=== PATIENT | female | born 1950 | race Caucasian/White ===

== ENCOUNTER 2016-08-14 08:20 | Outpatient (CLI) | payer MEDICARE, BC, OTHER ==
[2016-08-14 14:32] LABS: BASOPHILS # (AUTO) 0.2 10^3/uL (0.0-0.1); BASOPHILS % (AUTO) 3.1 %; EOSINOPHILS % (AUTO) 19.9 %; LYMPHOCYTES # (AUTO) 1.5 10^3/uL (1.5-3.5); LYMPHOCYTES % (AUTO) 29.8 %; MEAN CORPUSCULAR HEMOGLOBIN 32.3 pg (27.0-31.0); MEAN CORPUSCULAR HGB CONC 33.3 g/dL (32.0-36.0); MEAN PLATELET VOLUME 7.7 fL (7.9-10.8); MONOCYTES # (AUTO) 0.6 10^3/uL (0.0-1.0); NEUTROPHILS # (AUTO) 1.8 10^3/uL (1.5-6.6); NEUTROPHILS % (AUTO) 36.2 %; RED BLOOD COUNT 4.02 10^6/uL (4.20-5.40); RED CELL DISTRIBUTION WIDTH 15.1 % (12.0-15.0); UNCORRECTED WHITE BLOOD COUNT 5.1 x10^3/uL; WHITE BLOOD COUNT 5.1 x10^3/uL (4.8-10.8)
[2016-08-14 14:53] LABS: ALBUMIN/GLOBULIN RATIO 1.3 (1.0-2.2); BILIRUBIN,TOTAL 0.6 mg/dL (0.2-1.0); BUN - BLOOD UREA NITROGEN 14 mg/dL (6-20); CALCIUM 8.9 mg/dL (8.5-10.3); CARBON DIOXIDE - CO2 30 mmol/L (21-32); CHLORIDE 98 mmol/L (101-111); CHOL/HDL RATIO 3.4 (<4.4); CHOLESTEROL 192 mg/dL; CREATININE 0.8 mg/dL (0.4-1.0); GFR - MDRD 72 (>89); GLUCOSE 86 mg/dL (70-100); HDL CHOLESTEROL 56 mg/dL; LDL/HDL RATIO 2.1 (<4.4); POTASSIUM 3.7 mmol/L (3.5-5.0); SODIUM 134 mmol/L (135-145); TOTAL PROTEIN 7.9 g/dL (6.7-8.2); TRIGLYCERIDES 102 mg/dL; VLDL CHOLESTEROL 20 mg/dL
[2016-08-14 15:22] LABS: THYROID STIMULATING HORMONE 14.85 uIU/mL (0.34-5.60)
== END 2016-08-14 08:21 | disposition home or self-care (01) ==
LOC: LAB.R 08:20
PROVIDERS: ATTEND Physician Assistant Medical
DX: Z00.00 Encounter for general adult medical examination without abnormal findings (principal); E03.9 Hypothyroidism, unspecified; Z79.899 Other long term (current) drug therapy
CPT/HCPCS: 80053; 80061; 84439; 84443; 84481; 85025

== ENCOUNTER 2016-08-21 08:55 | Outpatient (CLI) | payer MEDICARE, BC, OTHER ==
[2016-08-21 09:20] LABS: BASOPHILS # (AUTO) 0.1 10^3/uL (0.0-0.1); BASOPHILS % (AUTO) 2.4 %; EOSINOPHILS # (AUTO) 1.1 10^3/uL (0.0-0.7); EOSINOPHILS % (AUTO) 20.1 %; HCT - HEMATOCRIT 37.8 % (37.0-47.0); HGB - HEMOGLOBIN 12.9 g/dL (12.0-16.0); LYMPHOCYTES # (AUTO) 1.7 10^3/uL (1.5-3.5); LYMPHOCYTES % (AUTO) 30.1 %; MEAN CORPUSCULAR HGB CONC 34.2 g/dL (32.0-36.0); MEAN CORPUSCULAR VOLUME 96.5 fL (81.0-99.0); MEAN PLATELET VOLUME 6.8 fL (7.9-10.8); MONOCYTES # (AUTO) 0.6 10^3/uL (0.0-1.0); MONOCYTES % (AUTO) 10.3 %; NEUTROPHILS % (AUTO) 37.1 %; RED BLOOD COUNT 3.91 10^6/uL (4.20-5.40); RED CELL DISTRIBUTION WIDTH 14.7 % (12.0-15.0); UNCORRECTED WHITE BLOOD COUNT 5.5 x10^3/uL; WHITE BLOOD COUNT 5.5 x10^3/uL (4.8-10.8)
== END 2016-08-21 08:56 | disposition home or self-care (01) ==
LOC: LAB 08:55
PROVIDERS: ATTEND Physician Assistant Medical
DX: R07.89 Other chest pain (principal); R07.1 Chest pain on breathing
CPT/HCPCS: 84484; 85025; 85379; 85651; 86140

== ENCOUNTER 2016-08-21 09:26 | Outpatient (CLI) | payer MEDICARE, BC, OTHER ==
--- NOTE | 2016-08-21 09:59 | XRAY Report ---
TWO-VIEW CHEST: 08/21/2016 CLINICAL INDICATION: Chest tightness, pleuritic chest pain for 5 days. FINDINGS: Frontal and lateral views of the chest demonstrate a normal cardiac silhouette. The lungs are clear. No effusion or pneumothorax is present. IMPRESSION: NORMAL CHEST. JOB #: [id number] EXT JOB #:[id number]
== END 2016-08-21 09:27 | disposition home or self-care (01) ==
LOC: DI 09:26
PROVIDERS: ATTEND Physician Assistant Medical
DX: R07.89 Other chest pain (principal)
CPT/HCPCS: 71020

== ENCOUNTER 2016-08-21 10:57 | Outpatient (CLI) | payer MEDICARE, BC, OTHER ==
[2016-08-21] MEDS ORDERED: IOPAMIDOL-300 100 ML VIAL IVP ONE (11:20)
--- NOTE | 2016-08-21 12:18 | CT Report ---
CT PULMONARY ANGIOGRAM: 08/21/2016 CLINICAL INDICATION: Pleuritic chest pain, elevated D-dimer, elevated CRP and ESR. TECHNIQUE: Axial CT images of the chest were obtained with 100 mL of Isovue-300 intravenously. Sagitt al and coronal 3D reconstructions were performed. FINDINGS: The heart and great vessels appear unremarkable. There is no evidence of pulmonary embolus . No pericardial effusion is present. No hilar or mediastinal lymphadenopathy is seen. The lungs are clear. No effusion or pneumothorax is present. The osseous structures demonstrate degenerative change s. Limited evaluation of upper abdominal structures demonstrates normal adrenal glands. IMPRESSION: NORMAL CT PULMONARY ANGIOGRAM. NO EVIDENCE OF PULMONARY EMBOLUS OR OTHER ETIOLOGY FOR PA TIENT'S PLEURITIC CHEST PAIN. In accordance with CT protocol optimization, one or more of the following dose reduction techniques w ere utilized for this exam: automated exposure control, adjustment of mA and/or KV based on patient size, or use of iterative reconstructive technique. JOB #: [id number] EXT JOB #:[id number]
== END 2016-08-21 10:58 | disposition home or self-care (01) ==
LOC: DI 10:57
PROVIDERS: ATTEND Physician Assistant Medical
DX: R07.2 Precordial pain (principal); R74.8 Abnormal levels of other serum enzymes; R07.89 Other chest pain; R09.1 Pleurisy; R07.1 Chest pain on breathing
CPT/HCPCS: 71020; 71275; 84484; 85025; 85379; 85651; 86140; Q9967; 36415

== ENCOUNTER 2016-08-31 08:25 | Outpatient (CLI) | payer MEDICARE, BC, OTHER ==
--- NOTE | 2016-09-02 08:15 | Mammography Report ---
DIGITAL SCREENING MAMMOGRAM: 08/31/2016 CLINICAL INDICATION: A 66-year-old nulliparous patient for screening. COMPARISON: 07/2014, 07/2011, 07/2010, 06/2008 TECHNIQUE: Routine CC and MLO projections were obtained of the breasts. FINDINGS: The breasts again demonstrate heterogeneously dense fibroglandular parenchyma bilaterally. Coarse and punctate, typically benign calcifications are present. No suspicious masses, clustered microcalcifications, or regions of architectural distortion are identified. IMPRESSION: BENIGN FINDINGS. RECOMMENDATION: Routine annual screening unless otherwise clinically indicated. BIRADS CATEGORY 2 - BENIGN FINDINGS. STANDARD QUALIFYING STATEMENTS 1. This examination was reviewed with the aid of Computer-Aided Detection (CAD). 2. A negative or benign imaging report should not delay biopsy if clinically suspicious findings are present. Consider surgical consultation if warranted. More than 5% of cancers are not identified by i maging. 3. Dense breasts may obscure an underlying neoplasm. JOB #: [id number] EXT JOB #:[id number]
== END 2016-08-31 08:26 | disposition home or self-care (01) ==
LOC: DI 08:25
PROVIDERS: ATTEND Physician Assistant Medical
DX: Z12.31 Encounter for screening mammogram for malignant neoplasm of breast (principal)
CPT/HCPCS: 77067

== ENCOUNTER 2016-10-06 08:33 | Outpatient (CLI) | payer MEDICARE, BC, OTHER | END 2016-10-06 08:34 | disposition home or self-care (01) | LOC: LAB.R 08:33 | PROVIDERS: ATTEND Physician Assistant Medical | DX: E03.9 Hypothyroidism, unspecified (principal); Z79.899 Other long term (current) drug therapy | CPT/HCPCS: 84443 ==

== ENCOUNTER 2017-08-26 09:10 | Outpatient (CLI) | payer MEDICARE, BC, OTHER ==
[2017-08-26 14:04] LABS: BASOPHILS # (AUTO) 0.1 10^3/uL (0.0-0.1); BASOPHILS % (AUTO) 1.4 %; EOSINOPHILS # (AUTO) 0.7 10^3/uL (0.0-0.7); EOSINOPHILS % (AUTO) 13.6 %; HGB - HEMOGLOBIN 13.6 g/dL (12.0-16.0); LYMPHOCYTES # (AUTO) 1.7 10^3/uL (1.5-3.5); LYMPHOCYTES % (AUTO) 33.8 %; MEAN CORPUSCULAR HEMOGLOBIN 31.7 pg (27.0-31.0); MEAN CORPUSCULAR HGB CONC 33.1 g/dL (32.0-36.0); MEAN CORPUSCULAR VOLUME 95.6 fL (81.0-99.0); MONOCYTES # (AUTO) 0.6 10^3/uL (0.0-1.0); MONOCYTES % (AUTO) 10.9 %; NEUTROPHILS % (AUTO) 40.3 %; PLT - PLATELET COUNT 357 10^3/uL (130-450); RED BLOOD COUNT 4.29 10^6/uL (4.20-5.40); RED CELL DISTRIBUTION WIDTH 13.5 % (12.0-15.0); WHITE BLOOD COUNT 5.1 x10^3/uL (4.8-10.8)
[2017-08-26 14:36] LABS: ALBUMIN 3.9 g/dL (3.2-5.5); ALKALINE PHOSPHATASE 57 IU/L (42-121); ALT ALANINE AMINOTRANSFERASE 14 IU/L (10-60); AST ASPARTATE AMINOTRANSFERASE 18 IU/L (10-42); BILIRUBIN,TOTAL 0.4 mg/dL (0.2-1.0); BUN - BLOOD UREA NITROGEN 23 mg/dL (6-20); CARBON DIOXIDE - CO2 27 mmol/L (21-32); CHLORIDE 102 mmol/L (101-111); CHOL/HDL RATIO 3.1 (<4.4); CHOLESTEROL 179 mg/dL; CREATININE 0.8 mg/dL (0.4-1.0); GFR - MDRD 71 (>89); GLUCOSE 80 mg/dL (70-100); HDL CHOLESTEROL 58 mg/dL; LDL CHOLESTEROL,CALCULATED 100 mg/dL; LDL/HDL RATIO 1.7 (<4.4); SODIUM 136 mmol/L (135-145); TOTAL PROTEIN 7.8 g/dL (6.7-8.2); VLDL CHOLESTEROL 21 mg/dL
[2017-08-27 14:02] LABS: HEPATITIS C ANTIBODY NON-REACTIVE (NON-REACTIVE)
== END 2017-08-26 09:11 ==
LOC: LAB.R 09:10
PROVIDERS: ATTEND Physician Assistant Medical
DX: K20.0 Eosinophilic esophagitis (principal); E03.9 Hypothyroidism, unspecified; M54.5 Low back pain; Z72.89 Other problems related to lifestyle; Z13.818 Encounter for screening for other digestive system disorders; Z79.899 Other long term (current) drug therapy
CPT/HCPCS: 36415; 80053; 80061; 83721; 84443; 85025; 86803

== ENCOUNTER 2017-09-14 09:39 | Outpatient (CLI) | payer MEDICARE, BC, OTHER ==
--- NOTE | 2017-09-14 10:27 | XRAY Report ---
Procedure Date: 09/14/2017 Accession Number: [id number] / [id number] Procedure: XR - Shoulder 2 View RT CPT Code: FULL RESULT: EXAM: Shoulder 2 View RT DATE: 09/14/2017 10:14 AM CLINICAL HISTORY: SHOULDER JOINT PAIN, RIGHT COMPARISON: None. TECHNIQUE: 3 views. FINDINGS: Bones: Normal. No fracture or bone lesion. Joints: The glenohumeral and acromioclavicular joints are normal. Soft tissues: The visualized hemithorax is unremarkable. No soft tissue swelling. IMPRESSION: Normal shoulder radiography. [facility]
== END 2017-09-14 09:40 | disposition home or self-care (01) ==
LOC: DI 09:39
PROVIDERS: ATTEND Internal Medicine
DX: M25.511 Pain in right shoulder (principal)

== ENCOUNTER 2017-09-28 14:24 | Outpatient (CLI) | payer MEDICARE, BC, OTHER ==
--- NOTE | 2017-09-29 10:29 | MRI Report ---
Procedure Date: 09/28/2017 Accession Number: [id number] / [id number] Procedure: MRI - Shoulder RT W/O CPT Code: FULL RESULT: EXAM: RIGHT SHOULDER MRI WITHOUT CONTRAST EXAM DATE: 09/28/2017 03:19 PM. CLINICAL HISTORY: Right shoulder joint pain. COMPARISON: Radiographs of the right shoulder 09/14/2017. TECHNIQUE: Multiplanar, multisequence T1-weighted and fluid-sensitive sequences of the shoulder without contrast. Other: None. FINDINGS: Acromioclavicular Region: The acromion is type II. The acromioclavicular joint is unremarkable. There is a moderate-sized bursal effusion. Glenohumeral Region: No subluxation. No effusion or loose bodies. The articular cartilage is unremarkable. Bone Marrow: No fracture, marrow edema or bone lesions. Labrum: The labrum is unremarkable on this nonarthrographic study. Musculature/Rotator Cuff: There is increased T2 signal in supraspinatus and infraspinatus consistent with tendinosis. There is a high-grade partial-thickness tear of the bursal surface fibers of supraspinatus at the insertion measuring approximately 8 x 6 mm. There is moderate infraspinatus tendinosis with low-grade partial thickness-fraying of the deep fibers. There is no atrophy. Biceps Tendon: There is tendinosis of the proximal long head of biceps. Other: The subcutaneous tissues are unremarkable. IMPRESSION: 1. Supraspinatus, infraspinatus and subscapularis tendinosis. High-grade partial-thickness tear of the bursal surface fibers of the insertion of supraspinatus. Low-grade partial-thickness tear of the deep fibers of subscapularis. 2. Moderate-sized bursal effusion suggestive of bursitis. [facility] MUSCULOSKELETAL RADIOLOGY SECTION
== END 2017-09-28 14:25 | disposition home or self-care (01) ==
LOC: DI 14:24
PROVIDERS: ATTEND Physician Assistant Medical
DX: M75.101 Unspecified rotator cuff tear or rupture of right shoulder, not specified as traumatic (principal); M25.411 Effusion, right shoulder; M67.911 Unspecified disorder of synovium and tendon, right shoulder

== ENCOUNTER 2018-01-26 08:00 | Outpatient (CLI) | payer MEDICARE, BC, OTHER | END 2018-01-26 23:59 | disposition home or self-care (01) | LOC: LAB.R 08:00 | PROVIDERS: ATTEND Physician Assistant Medical | DX: J02.9 Acute pharyngitis, unspecified (principal) | CPT/HCPCS: 87070 ==

== ENCOUNTER 2018-07-12 10:54 | Outpatient (CLI) | payer MEDICARE, BC, OTHER | END 2018-07-12 10:55 | disposition home or self-care (01) | LOC: LAB 10:54 | PROVIDERS: ATTEND Internal Medicine | DX: E03.9 Hypothyroidism, unspecified (principal) | CPT/HCPCS: 36415; 84443 ==

== ENCOUNTER 2019-04-01 11:44 | Outpatient (CLI) | payer MEDICARE, BC, OTHER ==
--- NOTE | 2019-04-01 21:53 | Ultrasound Report ---
Reason: LOCALIZED SWELLING, MASS AND LUMP, LEFT LOWER LIMB Procedure Date: 04/01/2019 Accession Number: [id number] / [id number] Procedure: US - Ext Limited Non Vascular CPT Code: Final Report FULL RESULT: EXAM: LEFT LOWER EXTREMITY ULTRASOUND - LIMITED EXAM DATE: 04/01/2019 12:27 PM. CLINICAL HISTORY: LOCALIZED SWELLING, MASS AND LUMP, LEFT LOWER LIMB. COMPARISON: None. TECHNIQUE: Real-time scanning was performed with static images obtained. FINDINGS: Region of interest is left posterior inferior calf. In region of interest, there is echogenic structure with dense posterior shadowing measuring 1.3 x 1.2 cm. This is located superficially within subcutaneous fat. There is color flow at periphery. Structure is noncompressible. IMPRESSION: Superficial echogenic 1.3 cm structure in region of interest with dense posterior shadowing. Dense shadowing suggests associated calcification. Follow-up or further imaging can be performed as clinically indicated. [facility]
== END 2019-04-01 11:45 | disposition home or self-care (01) ==
LOC: DI 11:44
PROVIDERS: ATTEND Nurse Practitioner Family
DX: R22.42 Localized swelling, mass and lump, left lower limb (principal)
CPT/HCPCS: 76882

== ENCOUNTER 2019-06-29 09:11 | Outpatient (CLI) | payer MEDICARE, BC, OTHER ==
[2019-06-29 09:29] LABS: BASOPHILS # (AUTO) 0.1 10^3/uL (0.0-0.1); BASOPHILS % (AUTO) 1.6 %; EOSINOPHILS # (AUTO) 0.5 10^3/uL (0.0-0.7); EOSINOPHILS % (AUTO) 9.1 %; LYMPHOCYTES # (AUTO) 2.3 10^3/uL (1.5-3.5); LYMPHOCYTES % (AUTO) 45.7 %; MEAN CORPUSCULAR HEMOGLOBIN 32.3 pg (27.0-31.0); MEAN CORPUSCULAR HGB CONC 33.3 g/dL (32.0-36.0); MEAN PLATELET VOLUME 9.1 fL (7.9-10.8); MONOCYTES # (AUTO) 0.6 10^3/uL (0.0-1.0); MONOCYTES % (AUTO) 11.3 %; NEUTROPHILS # (AUTO) 1.6 10^3/uL (1.5-6.6); NEUTROPHILS % (AUTO) 32.1 %; PLT - PLATELET COUNT 335 10^3/uL (130-450); RED BLOOD COUNT 4.34 10^6/uL (4.20-5.40); RED CELL DISTRIBUTION WIDTH 12.4 % (12.0-15.0)
[2019-06-29 09:54] LABS: ALBUMIN 4.2 g/dL (3.2-5.5); ALBUMIN/GLOBULIN RATIO 1.4 (1.0-2.2); ALKALINE PHOSPHATASE 51 IU/L (42-121); ALT ALANINE AMINOTRANSFERASE 15 IU/L (10-60); AST ASPARTATE AMINOTRANSFERASE 19 IU/L (10-42); BILIRUBIN,TOTAL 0.7 mg/dL (0.2-1.0); BUN - BLOOD UREA NITROGEN 14 mg/dL (6-20); CALCIUM 8.9 mg/dL (8.5-10.3); CARBON DIOXIDE - CO2 30 mmol/L (21-32); CHLORIDE 102 mmol/L (101-111); CHOL/HDL RATIO 3.3 (<4.4); CHOLESTEROL 208 mg/dL; CREATININE 0.6 mg/dL (0.4-1.0); GLUCOSE 98 mg/dL (70-100); HDL CHOLESTEROL 63 mg/dL; LDL CHOLESTEROL,CALCULATED 126 mg/dL; SODIUM 137 mmol/L (135-145); TOTAL PROTEIN 7.3 g/dL (6.7-8.2); VLDL CHOLESTEROL 19 mg/dL
== END 2019-06-29 09:12 | disposition home or self-care (01) ==
LOC: LAB 09:11
PROVIDERS: ATTEND Nurse Practitioner
DX: Z00.00 Encounter for general adult medical examination without abnormal findings (principal); F51.04 Psychophysiologic insomnia; M85.80 Other specified disorders of bone density and structure, unspecified site; E03.9 Hypothyroidism, unspecified; Z79.899 Other long term (current) drug therapy
CPT/HCPCS: 36415; 80053; 80061; 83721; 84443; 85025

== ENCOUNTER 2020-04-05 22:57 | Inpatient (IN) | payer MEDICARE, BC, OTHER ==
[2020-04-06 00:03] LABS: BILIRUBIN,URINE NEGATIVE (NEGATIVE); GLUCOSE, URINE (UA) NEGATIVE (NEGATIVE); KETONES,URINE (UA) 15 mg/dL (NEGATIVE); LEUKOCYTE ESTERASE, URINE NEGATIVE (NEGATIVE); NITRITE,URINE NEGATIVE (NEGATIVE); OCCULT BLOOD,URINE NEGATIVE (NEGATIVE); PH,URINE 7.5 PH (5.0-7.5); PROTEIN,URINE TRACE mg/dL (NEGATIVE); UROBILINOGEN,URINE 0.2 (NORMAL) E.U./dL (NORMAL)
[2020-04-06 00:04] LABS: BASOPHILS # (AUTO) 0.1 10^3/uL (0.0-0.1); BASOPHILS % (AUTO) 0.4 %; EOSINOPHILS # (AUTO) 0.2 10^3/uL (0.0-0.7); EOSINOPHILS % (AUTO) 1.5 %; HGB - HEMOGLOBIN 12.8 g/dL (12.0-16.0); LYMPHOCYTES # (AUTO) 1.8 10^3/uL (1.5-3.5); LYMPHOCYTES % (AUTO) 13.4 %; MEAN CORPUSCULAR HEMOGLOBIN 31.7 pg (27.0-31.0); MEAN PLATELET VOLUME 9.4 fL (7.9-10.8); MONOCYTES # (AUTO) 0.7 10^3/uL (0.0-1.0); NEUTROPHILS # (AUTO) 10.9 10^3/uL (1.5-6.6); NEUTROPHILS % (AUTO) 79.1 %; PLT - PLATELET COUNT 333 10^3/uL (130-450); RED BLOOD COUNT 4.04 10^6/uL (4.20-5.40); RED CELL DISTRIBUTION WIDTH 12.3 % (12.0-15.0); WHITE BLOOD COUNT 13.7 x10^3/uL (4.8-10.8)
[2020-04-06 00:04] LABS: CLARITY,URINE CLEAR (CLEAR)
[2020-04-06 00:13] LABS: ALBUMIN/GLOBULIN RATIO 1.1 (1.0-2.2); BILIRUBIN,TOTAL 0.4 mg/dL (0.2-1.0); CALCIUM 8.9 mg/dL (8.5-10.3); CREATININE 0.6 mg/dL (0.4-1.0); TOTAL PROTEIN 7.5 g/dL (6.7-8.2)
--- NOTE | 2020-04-06 00:21 | ED Physician Documentation ---
PD HPI ABD PAIN - Stated complaint Stated Complaint: ABD PX - Chief complaint Chief Complaint: Abd Pain - History obtained from History obtained from: Patient - History of Present Illness Timing - onset: Yesterday Timing - details: Gradual onset Pain level max: 7 (with movement, palpation) Pain level now: 3 (when lying still) Quality: Pain Location: All over / everywhere (most pronounced across lower abdomen) Radiation: Other (does not radiate) Worsened by: Eating, Palpation Associated symptoms: No: Fever, Nausea, Vomiting, Diarrhea, Constipation Similar symptoms before: Has not had sx before Recently seen: Not recently seen - Additional information Additional information: c/o gradual onset lower abdominal pain since yesterday, constant and steadily progressive. She denies having this type of pain in the past. pain is exacerbated with movement, eating, palpation. Review of Systems Constitutional: reports: Reviewed and negative Eyes: reports: Reviewed and negative Ears: reports: Reviewed and negative Nose: reports: Reviewed and negative Throat: reports: Reviewed and negative Cardiac: reports: Reviewed and negative Respiratory: reports: Reviewed and negative GI: reports: Abdominal Pain. denies: Nausea, Vomiting, Constipation, Diarrhea, Bloody / black stool : denies: Dysuria, Frequency Skin: reports: Reviewed and negative Musculoskeletal: reports: Reviewed and negative Neurologic: reports: Reviewed and negative PD PAST MEDICAL HISTORY - Past Medical History Past Medical History: Yes Endocrine/Autoimmune: HyPOthyroidism - Past Surgical History Past Surgical History: No - Present Medications Home Medications: Ambulatory Orders Medication Instructions Recorded Confirmed Levothyroxine [Synthroid] 75 mcg PO QDAC 04/05/20 04/05/20 - Allergies Allergies/Adverse Reactions: Allergies Allergy/AdvReac Type Severity Reaction Status Date / Time No Known Drug Allergies Allergy Verified 04/05/20 23:16 - Living Situation Living Arrangement: reports: At home - Social History Does the pt smoke?: No Smoking Status: Never smoker PD ED PE NORMAL - Vitals Vital signs reviewed: Yes - General General: Alert and oriented X 3, No acute distress, Well developed/nourished - HEENT HEENT: Moist mucous membranes - Neck Neck: Supple, no meningeal sign - Cardiac Cardiac: RRR - Respiratory Respiratory: No respiratory distress, Clear bilaterally - Abdomen Abdomen: Soft, Non distended, Other (TTP, diffuse but most pronounced across lower abdomen. No rebound nor guarding) - Derm Derm: Normal color, Warm and dry - Extremities Extremities: No edema PD ED PE EXPANDED - Cardiac Cardiac: Murmur Present (2/6 ARNOLDO left 2nd ICS) Results - Vitals Vitals: Vital Signs - 24 hr 04/05/20 04/05/20 23:00 23:20 Temperature 36.6 C Heart Rate 115 H 95 Respiratory 16 18 Rate Blood Pressure 174/88 H 143/76 H O2 Saturation 100 100 Oxygen O2 Source Room air - Labs Labs: Laboratory Tests 04/05/20 04/05/20 04/05/20 23:48 23:58 23:58 WBC 13.7 H RBC 4.04 L Hgb 12.8 Hct 40.0 MCV 99.0 MCH 31.7 H MCHC 32.0 RDW 12.3 Plt Count 333 MPV 9.4 Neut # (Auto) 10.9 H Lymph # (Auto) 1.8 [place] # (Auto) 0.7 Eos # (Auto) 0.2 Baso # (Auto) 0.1 Absolute Nucleated RBC 0.00 Nucleated RBC % 0.0 Sodium 137 Potassium 3.6 Chloride 102 Carbon Dioxide 25 Anion Gap 10.0 BUN 15 Creatinine 0.6 Estimated GFR (MDRD) 99 Glucose 109 H Calcium 8.9 Total Bilirubin 0.4 AST 20 ALT 18 Alkaline Phosphatase 71 Total Protein 7.5 Albumin 4.0 Globulin 3.5 Albumin/Globulin Ratio 1.1 Lipase 28 Urine Color YELLOW Urine Clarity CLEAR Urine pH 7.5 Ur Specific [place] 1.020 Urine Protein TRACE Urine Glucose (UA) NEGATIVE Urine Ketones 15 H Urine Occult Blood NEGATIVE Urine Nitrite NEGATIVE Urine Bilirubin NEGATIVE Urine Urobilinogen 0.2 (NORMAL) Ur Leukocyte Esterase NEGATIVE Ur Microscopic Review NOT INDICATED Urine Culture Comments NOT INDICATED - Rads (name of study) CT A/P with IV contrast Radiology: Prelim report reviewed, See rad report PD MEDICAL DECISION MAKING - ED course Complexity details: reviewed results, re-evaluated patient, considered differential, d/w patient, d/w student union consultant (Dr. Sears) ED course: patient is in NAD at rest, moderate TTP on abdominal exam. CT A/P demonstrates small amount free air with sigmoid diverticulitis. She declines pain medication during ED stay. Given zosyn and admitted to hospitalist service. I also discussed the case with Dr. Sears Departure - Departure Disposition: [facility] DC/Xfer Clinical Impression: Diverticulitis of intestine with perforation Qualifiers: Diverticulitis site: small intestine Diverticulitis bleeding: without bleeding Qualified Code(s): K57.00 - Diverticulitis of small intestine with perforation and abscess without bleeding Condition: Good Discharge Date/Time: 04/06/20 03:09
[2020-04-06] MEDS ORDERED: IOVERSOL 320 100 ML VIAL IVP ONE ×2 (00:45→00:54)
[2020-04-06] MEDS ORDERED: PIPERACILLIN/TAZOBACTAM 3.375 GM in SODIUM CHLORIDE 0.9% MINIBAG 100 ML IV STA (01:31)
[2020-04-06] MEDS ORDERED: HYDROmorphone 0.5 MG/0.5 ML SYRINGE IVP PRN (01:52)
[2020-04-06] MEDS: D5NS W/20 MEQ KCL 1,000 ML IV SCH ×3 (03:08→20:02)
--- NOTE | 2020-04-06 03:30 | HISTORY & PHYSICAL EXAMINATION ---
DATE OF SERVICE: 04/06/2020 Physician: Yenifer Buckley MD HISTORY OF PRESENT ILLNESS: This is a 69-year-old white female with a history of hypothyroidism, on Synthroid replacement. She presents with two days of abdominal pain and has never had this before. It got to a lwvwl 12/01 and she could not handle the pain, which brought her in. Evaluation in the ER showed some guarding, but no rebound and CT imaging was done that showed diverticulitis with free air in the abdomen as well as ascites, an inflamed appendix and an ileus. The patient is being admitted for management of a perforated diverticulum, ileus and possibly appendicitis. PAST MEDICAL HISTORY: Hypothyroidism. ALLERGIES: NONE. MEDICATIONS: Synthroid 75 mcg daily. SOCIAL HISTORY: The patient is a nonsmoker who never smoked. She drinks rare alcohol (about 2 drinks oer week). No illicit drug use history. She lives with her . She is a retired bank sales and service manager; she is active around the house and drives. She has no children, there is a brother and sister. FAMILY HISTORY: No inherited diseases. REVIEW OF SYSTEMS: She has had no fever, she denies any nausea or vomiting. She denies any bright red blood per rectum. She had a colonoscopy about b10 years ago which was unremarkable. A comprehensive review of systems was performed and the pertinent positives are listed, the rest are negative. PHYSICAL EXAMINATION GENERAL: Thin white female who is in mild distress from pain. VITAL SIGNS: Blood pressure 174/88, heart rate 115 in sinus rhythm, afebrile, room air saturation 100%. HEENT: Unremarkable. NECK: Shows no JVD or carotid bruits. CHEST: Clear. HEART: Normal heart sounds without murmurs. ABDOMEN: Mildly distended, but there is guarding in both lower quadrants, no rebound. Decreased bowel sounds in upper abdomen, present and normal bowel sounds in lower abdomen. EXTREMITIES: No clubbing, cyanosis or edema. NEUROLOGIC: Grossly intact. LABORATORY DATA: Normal electrolytes and BUN and creatinine. Lactic acid normal at 0.6. Normal liver tests and lipase. White blood count elevated at 13.7, hemoglobin 12.8, platelet count normal at 333. No INR was done. Urinalysis showed high ketones present, but otherwise unremarkable. IMAGING: CT imaging report is not back yet; but as per the verbal report given to me by the emergency room doctor, she has presence of diverticulitis seen in the sigmoid colon, free air seen, ascites, appendix was inflamed, and ileus is reported. No EKG was done. IMPRESSION/DIAGNOSES 1. Sepsis by virtue of elevated white count and tachycardia. 2. Sigmoid diverticulitis. 3. Perforated diverticulum. 3. Ileus. 4. Hypothyroidism. PLAN: Admit the patient to the Hospitalist service. Begin bowel rest with n.p.o. status and start peripheral IV fluids for maintenance hydration. Order narcotic pain medication p.r.n. Continue iv antibiotics; Zosyn IV was given in the ER and this will be continued every 6 hours. Obtain a General Surgery consult to follow along with us, especially with concern that there is a bowel perforation. IV Synthroid will be dosed every 5 days while she needs n.p.o. status. CODE STATUS: FULL CODE. DEEP VENOUS THROMBOSIS PROPHYLAXIS: SCDs. ATTESTATION: Patient is expected to be discharged or transferred to another facility within 96 hours: Yes. cc: KALYAN Florez NP-C TD: 04/06/2020 02:52 LUIS ARMANDO
[2020-04-06 04:16] LABS: C. PNEUMONIAE- RESP PCR PANEL NOT DETECTED
[2020-04-06 04:54] LABS: BASOPHILS % (AUTO) 0.3 %; EOSINOPHILS # (AUTO) 0.1 10^3/uL (0.0-0.7); EOSINOPHILS % (AUTO) 0.7 %; HGB - HEMOGLOBIN 11.9 g/dL (12.0-16.0); LYMPHOCYTES # (AUTO) 1.3 10^3/uL (1.5-3.5); LYMPHOCYTES % (AUTO) 13.1 %; MEAN CORPUSCULAR HEMOGLOBIN 31.3 pg (27.0-31.0); MEAN CORPUSCULAR HGB CONC 31.4 g/dL (32.0-36.0); MEAN CORPUSCULAR VOLUME 99.7 fL (81.0-99.0); MEAN PLATELET VOLUME 9.6 fL (7.9-10.8); MONOCYTES # (AUTO) 0.5 10^3/uL (0.0-1.0); MONOCYTES % (AUTO) 5.5 %; NEUTROPHILS # (AUTO) 7.7 10^3/uL (1.5-6.6); PLT - PLATELET COUNT 291 10^3/uL (130-450); RED CELL DISTRIBUTION WIDTH 12.2 % (12.0-15.0); WHITE BLOOD COUNT 9.6 x10^3/uL (4.8-10.8)
[2020-04-06 06:04] LABS: CALCIUM 8.3 mg/dL (8.5-10.3); CREATININE 0.6 mg/dL (0.4-1.0); MAGNESIUM 2.2 mg/dL (1.7-2.8)
[2020-04-06] MEDS ORDERED: LEVOTHYROXINE 100 MCG VIAL IVP SCH (07:00)
[2020-04-06] MEDS: FAMOTIDINE 20 MG/2 ML VIAL IVP SCH ×2 (09:08→21:21)
[2020-04-06] MEDS: PIPERACILLIN/TAZOBACTAM 3.375 GM in SODIUM CHLORIDE 0.9% MINIBAG 100 ML IV SCH ×3 (09:08→19:56)
[2020-04-06] MEDS: SODIUM CHLORIDE FLUSH 0.9% 10 ML SYRINGE IVP SCH ×3 (09:08→23:27)
--- NOTE | 2020-04-06 10:00 | CT Report ---
PROCEDURE: Abdomen/Pelvis W INDICATIONS: abdominal pain CONTRAST: IV CONTRAST: Optiray 320 ml: 100 PO CONTRAST: *NO PO CONTRAST TECHNIQUE: After the administration of nonionic IV contrast, 5 mm thick sections acquired from the diaphragms to the symphysis. 5 mm thick coronal and sagittal reformats were acquired. For radiation dose reducti on, the following was used: automated exposure control, adjustment of mA and/or kV according to francoise ent size. COMPARISON: None. FINDINGS: Image quality: Excellent. ABDOMEN: Lung bases: Lung bases are clear. Heart size is normal. A small hiatal hernia is incidentally noted . Solid organs: Liver and spleen are normal in size and enhancement. Gallbladder is largely collapsed at the time of this study Biliary system is non dilated. Pancreas enhances normally. No adrenal n odules. Kidneys demonstrate normal size and enhancement, without hydronephrosis. Peritoneum and bowel: Inflammatory change can be seen involving the sigmoid colon, with diverticula f ormation. Free fluid is seen, without a loculated abscess seen. Free air is seen, including nondepend ently within the peritoneal cavity. The appendix appears inflamed and measures up to 1 cm. A moderate amount of stool is seen within the colon. Generalized prominence of fluid-filled small bow el loops can be seen, which measure up to 2.47 m. Nodes and vessels: No retroperitoneal or mesenteri c adenopathy by size criteria. Aorta and inferior vena cava are normal in size. Miscellaneous: No ventral hernias. PELVIS: Genitourinary: Bladder wall thickness is normal. The uterus demonstrates an unremarkable appearance for age. No adnexal masses are seen. Miscellaneous: No inguinal hernias or adenopathy. Bones: No suspicious bony lesions. No acute appearing vertebral body compression fractures. There is a remote appearing compression deformity involving the superior endplate of L2, with an associated Schmorl's node. Focal L4-L5 degenerative change is seen. Milder degenerative changes are seen elsewh ere. IMPRESSION: Inflamed sigmoid colon, with free fluid and free air, which is attributed to perforated diverticulitis. No loculated abscess can be seen. The appendix appears inflamed, which is believed to be secondary to the diverticulitis. Secondary small bowel ileus can be seen. There is a moderate amount of stool seen within the colon. Please correlate with clinical constipatio n. Incidental note is made of: Small hiatal hernia Remote central compression deformity of L2 Focal L4-L5 degenerative change Note: No significant discrepancy from the preliminary report. Reviewed by: Chuy Walters MD on 04/06/2020 8:58 AM RUST Approved by: Chuy Walters MD on 04/06/2020 8:58 AM RUST Station ID: [id number]
--- NOTE | 2020-04-06 13:28 | CONSULTATION NOTE ---
Referring Provider Name of Referring Provider:: MD Caro Consult Date: 04/06/20 Chief Complaint - Chief Complaint Chief Complaint: Abdominal pain History of Present Illness - Admitted From Admitted From:: ED - History Obtained From Records Reviewed: Provider's notes History obtained from: Patient and providers Exam Limitations: None - History of Present Illness HPI Comment/Other: Pleasant and generally active 69 year old lady who began having abdominal pain on evening. When it did not improve with conservative measures at home, she presented to the ED. Studies in the ED showed sigmoid diverticulitis with a contained perforation in the pelvis. This is associate with some surrounding air and fluid and is near the appendix. She was admitted to the hospitalist service and started on antibiotics. Over the evening, her leukocytosis has impro gaye and she reports her pain is about the same. She denies any fever. The pain is located in the suprapubic region and bilateral lower quadrants. She denies any nausea but complains of pain and has no apetite History - Past Medical History Endocrine/Autoimmune: reports: HyPOthyroidism - Family & Social History Living arrangement: At home Meds/Allgy - Home Medications Home Medications: Ambulatory Orders Medication Instructions Recorded Confirmed Levothyroxine [Synthroid] 75 mcg PO QDAC 04/05/20 04/05/20 - Allergies Allergies/Adverse Reactions: Allergies Allergy/AdvReac Type Severity Reaction Status Date / Time No Known Drug Allergies Allergy Verified 04/05/20 23:16 Review of Systems - Constitutional Constitutional: reports: Fatigue. denies: Fever, Chills, Weakness - Eyes Eyes: denies: Pain, Irritation - Ears, Nose & Throat Ears, Nose & Throat: denies: Tinnitus, Vertigo - Cardiovascular Cariovascular: denies: Irregular heart rate, Palpitations, Chest pain - Gastrointestinal Gastrointestinal: reports: Abdominal pain, Constipation, Other (Passing some flatus this morning). denies: Nausea, Vomiting - Genitourinary Genitourinary: reports: Dysuria. denies: Frequency, Urgency - Musculoskeletal Musculoskeletal: denies: Muscle pain - All Other Systems All Other Systems: reports: Reviewed and negative Exam - Vital Signs Vital Signs: Vital Signs x48h Temp Pulse Resp BP Pulse Ox 04/06/20 11:57 36.8 C 99 17 127/65 100 04/06/20 07:36 36.7 C 83 17 107/65 96 - Physical Exam General Appearance: positive: Mild distress Eyes Bilateral: positive: Normal inspection, PERRL, EOMI ENT: positive: ENT inspection nml, Pharynx nml Neck: positive: Nml inspection, Thyroid nml, No JVD Respiratory: positive: Chest non-tender, No respiratory distress Cardiovascular: positive: Regular rate & rhythm Peripheral Pulses: positive: 0 Abdomen: positive: Tenderness, Guarding, Rebound Extremities: positive: Non-tender Neurologic/Psychiatric: positive: Oriented x3 Conclusion and Plan - Lab Results Laboratory Results 04/06/20 04:21: TSH 5.84 H 04/06/20 04:21: Sodium 135, Potassium 3.9, Chloride 101, Carbon Dioxide 24, Anion Gap 10.0, BUN 13, Creatinine 0.6, Estimated GFR (MDRD) 99, Glucose 148 H, Calcium 8.3 L, Magnesium 2.2 04/06/20 04:21: WBC 9.6, RBC 3.80 L, Hgb 11.9 L, Hct 37.9, MCV 99.7 H, MCH 31.3 H, MCHC 31.4 L, RDW 12.2, Plt Count 291, MPV 9.6, Neut # (Auto) 7.7 H, Lymph # (Auto) 1.3 L, [place] # (Auto) 0.5, Eos # (Auto) 0.1, Baso # (Auto) 0.0, Absolute Nucleated RBC 0.00, Nucleated RBC % 0.0 04/06/20 03:11: Nasal Adenovirus (PCR) NOT DETECTED, Nasal B. parapertussis DNA (PCR) NOT DETECTED, Nasal Coronavir 229E PCR NOT DETECTED, Nasal Coronavir HKU1 PCR NOT DETECTED, Nasal Coronavir NL63 PCR NOT DETECTED, Nasal Coronavir OC43 PCR NOT DETECTED, Nasal Enterovir/Rhinovir PCR NOT DETECTED, Nasal Influenza B PCR NOT DETECTED, Nasal Influenza A PCR NOT DETECTED, Nasal Parainfluen 1 PCR NOT DETECTED, Nasal Parainfluen 2 PCR NOT DETECTED, Nasal Parainfluen 3 PCR NOT DETECTED, Nasal Parainfluen 4 PCR NOT DETECTED, Nasal RSV (PCR) NOT DETECTED, Nasal B.pertussis DNA PCR NOT DETECTED, Nasal C.pneumoniae (PCR) NOT DETECTED, [place] Human Metapneumo PCR NOT DETECTED, Nasal M.pneumoniae (PCR) NOT DETECTED, Nasal SARS-CoV-2 (PCR) NOT DETECTED 04/06/20 01:57: Lactic Acid 0.6 04/05/20 23:58: Sodium 137, Potassium 3.6, Chloride 102, Carbon Dioxide 25, Anion Gap 10.0, BUN 15, Creatinine 0.6, Estimated GFR (MDRD) 99, Glucose 109 H, Calcium 8.9, Total Bilirubin 0.4, AST 20, ALT 18, Alkaline Phosphatase 71, Total Protein 7.5, Albumin 4.0, Globulin 3.5, Albumin/Globulin Ratio 1.1, Lipase 28 04/05/20 23:58: WBC 13.7 H, RBC 4.04 L, Hgb 12.8, Hct 40.0, MCV 99.0, MCH 31.7 H, MCHC 32.0, RDW 12.3, Plt Count 333, MPV 9.4, Neut # (Auto) 10.9 H, Lymph # (Auto) 1.8, [place] # (Auto) 0.7, Eos # (Auto) 0.2, Baso # (Auto) 0.1, Absolute Nucleated RBC 0.00, Nucleated RBC % 0.0 04/05/20 23:48: Urine Color YELLOW, Urine Clarity CLEAR, Urine pH 7.5, Ur Specific [place] 1.020, Urine Protein TRACE, Urine Glucose (UA) NEGATIVE, Urine Ketones 15 H, Urine Occult Blood NEGATIVE, Urine Nitrite NEGATIVE, Urine Bilirubin NEGATIVE, Urine Urobilinogen 0.2 (NORMAL), Ur Leukocyte Esterase NEGATIVE, Ur Microscopic Review NOT INDICATED, Urine Culture Comments NOT INDICATED - Diagnostic Imaging Results Diagnostic Imaging Results Comments: Findings as above - Diagnosis Diagnosis: Perforated diverticuloisis with developing abscess or phlegmon - Plan Plan: Agree with antibiotics and watchful waiting. I would recommend adding Flagyl IV if she is able to tolerate it. If pain continues to improve, plan to repeat the CT on Wednesday. If symptoms worsen, reconsider OR intervention
[2020-04-06] MEDS ORDERED: ACETAMINOPHEN 1,000 MG/100 ML 100 ML IV PRN (13:45)
[2020-04-06] MEDS: metroNIDAZOLE 500 MG/100 ML 500 MG/100 ML BAG IV SCH ×2 (14:53→21:21)
[2020-04-06] MEDS: SODIUM CHLORIDE FLUSH 0.9% 10 ML SYRINGE IVP PRN (18:39)
[2020-04-06] MEDS: ONDANSETRON 4 MG/2 ML VIAL IVP PRN (18:39)
[2020-04-07] MEDS: PIPERACILLIN/TAZOBACTAM 3.375 GM in SODIUM CHLORIDE 0.9% MINIBAG 100 ML IV SCH ×4 (02:17→19:06)
[2020-04-07 05:36] LABS: BASOPHILS % (AUTO) 0.7 %; EOSINOPHILS # (AUTO) 0.5 10^3/uL (0.0-0.7); EOSINOPHILS % (AUTO) 7.7 %; HGB - HEMOGLOBIN 11.3 g/dL (12.0-16.0); LYMPHOCYTES # (AUTO) 1.6 10^3/uL (1.5-3.5); LYMPHOCYTES % (AUTO) 26.7 %; MEAN CORPUSCULAR HEMOGLOBIN 31.9 pg (27.0-31.0); MEAN CORPUSCULAR VOLUME 99.7 fL (81.0-99.0); MEAN PLATELET VOLUME 9.7 fL (7.9-10.8); MONOCYTES # (AUTO) 0.5 10^3/uL (0.0-1.0); MONOCYTES % (AUTO) 8.9 %; NEUTROPHILS # (AUTO) 3.3 10^3/uL (1.5-6.6); NEUTROPHILS % (AUTO) 55.8 %; PLT - PLATELET COUNT 292 10^3/uL (130-450); RED BLOOD COUNT 3.54 10^6/uL (4.20-5.40); RED CELL DISTRIBUTION WIDTH 12.4 % (12.0-15.0); WHITE BLOOD COUNT 5.9 x10^3/uL (4.8-10.8)
[2020-04-07] MEDS: D5NS W/20 MEQ KCL 1,000 ML IV SCH ×3 (05:37→21:11)
[2020-04-07] MEDS: metroNIDAZOLE 500 MG/100 ML 500 MG/100 ML BAG IV SCH ×3 (05:37→21:08)
[2020-04-07 05:46] LABS: BUN - BLOOD UREA NITROGEN < 5 mg/dL (6-20); CALCIUM 7.8 mg/dL (8.5-10.3); CARBON DIOXIDE - CO2 21 mmol/L (21-32); CHLORIDE 110 mmol/L (101-111); CREATININE 0.5 mg/dL (0.4-1.0); GLUCOSE 127 mg/dL (70-100)
--- NOTE | 2020-04-07 08:01 | PROVIDER PROGRESS NOTE ---
Assessment/Plan - Problem List (1) Diverticulitis of intestine with perforation Qualifiers: Diverticulitis site: small intestine Diverticulitis bleeding: without bleeding Qualified Code(s): K57.00 - Diverticulitis of small intestine with perforation and abscess without bleeding Assessment/Plan: Patient's WBC today is 5.9. We will continue antibiotics with Zosyn. Patient reports mild pain. Pain management with tylenol and Dilaudid as needed. Patient continues to be afebrile and her vitals are stable. She is being seen by Dr. Alicia Nova of general surgery. Dr. Nova recommends continued medical management for now. Patient was advanced to soft, low fiber diet today. Plan for a repeat CT scan of the abdomen/pelvis tomorrow. (2) Hypothyroidism Assessment/Plan: Will resume patient's Synthroid 75 mcg p.o. before every meal when appropriate to do so. - Current Meds Current Meds: Current Medications Generic Name Dose Route Start Last Admin Trade Name Freq PRN Reason Stop Dose Admin Famotidine 20 mg 04/06/20 09:00 04/06/20 21:21 Famotidine 20 Mg/2 Ml Vial IVP 20 mg BID ISMAEL Administration Hydromorphone HCl 0.5 mg 04/06/20 01:52 04/06/20 03:22 Hydromorphone 0.5 Mg/0.5 Ml Syringe IVP 0.5 mg Q2H PRN Administration Pain 8 to 10 Potassium Chloride/Dextrose/Sod Cl 1,000 mls @ 125 mls/hr 04/06/20 02:00 04/07/20 05:37 IV 125 mls/hr .Q8H ISMAEL Administration Piperacillin Sod/Tazobactam 100 mls @ 200 mls/hr 04/06/20 08:00 04/07/20 02:47 Sod 3.375 gm/ Sodium Chloride IV Infused Q6H ISMAEL Infusion Metronidazole 500 mg in 100 mls @ 100 mls/hr 04/06/20 14:00 04/07/20 06:37 Flagyl 500 Mg/100 Ml IV Infused Q8H ISMAEL Infusion Acetaminophen 100 mls @ 400 mls/hr 04/06/20 13:45 04/06/20 14:10 Ofirmev IV Infused Q6HR PRN Infusion PAIN Ondansetron HCl 4 mg 04/06/20 01:52 04/06/20 18:39 Ondansetron 4 Mg/2 Ml Vial IVP 4 mg Q6HR PRN Administration Nausea / Vomiting Sodium Chloride 10 ml 04/06/20 01:52 04/06/20 18:39 Sodium Chloride Flush 0.9% 10 Ml Syringe IVP 10 ml PRN PRN Administration NEEDED PER PROVIDER ORDERS Sodium Chloride 10 ml 04/06/20 09:00 04/06/20 23:27 Sodium Chloride Flush 0.9% 10 Ml Syringe IVP Not Given 0100,0900,1700 ISMAEL - Lab Result Fish Bone Diagrams: 04/07/20 04:45 04/07/20 04:45 - Additional Planning My Orders: My Active Orders 04/06/20 13:45 Acetaminophen 1,000 mg/100 ml [Ofirmev] 100 ml IV Q6HR Subjective - Subjective Patient Reports: Other (Patient is up ambulating around her nursing floor at time of exam. She reported significant improvement in her abdominal pain. He reported having a small bowel movement this morning. She denied nausea, vomiting, fever or chills.) Objective Vital Signs: Vital Signs - 24 hr 04/06/20 04/06/20 04/06/20 11:57 16:08 23:36 Temperature 36.8 C 36.8 C 36.9 C Heart Rate [ 99 68 70 Radial] Respiratory 17 18 16 Rate Blood Pressure 127/65 114/59 L 125/77 [Left Brachial artery] O2 Saturation 100 99 100 04/07/20 07:15 Temperature 36.7 C Heart Rate [ 77 Radial] Respiratory 16 Rate Blood Pressure 136/89 H [Left Brachial artery] O2 Saturation 100 Oxygen O2 Source Room air I&O (Last 24 Hrs): Intake and Output Totals x24h 04/05/20 04/06/20 04/07/20 23:59 23:59 23:59 Intake Total 2500.000 1200 Output Total 2 Balance 2498.000 1200 General: Alert, Oriented x3, Mild distress, Moderate distress HEENT: PERRLA, EOMI Neck: Supple, No JVD Neuro: Alert, Non Focal, Oriented Times 3 Cardiovascular: Regular rate, Normal S1, Normal S2 Respiratory: Chest non-tender, No respiratory distress, Breath sounds nml Abdomen: Normal bowel sounds, Soft, Other (Mild to moderate tenderness) Extremities: No clubbing, No cyanosis, No edema Skin: No rashes - Results Results: Laboratory Results WBC 5.9 x10^3/uL (4.8-10.8) 04/07/20 04:45 RBC 3.54 10^6/uL (4.20-5.40) L 04/07/20 04:45 Hgb 11.3 g/dL (12.0-16.0) L 04/07/20 04:45 Hct 35.3 % (37.0-47.0) L 04/07/20 04:45 MCV 99.7 fL (81.0-99.0) H 04/07/20 04:45 MCH 31.9 pg (27.0-31.0) H 04/07/20 04:45 MCHC 32.0 g/dL (32.0-36.0) 04/07/20 04:45 RDW 12.4 % (12.0-15.0) 04/07/20 04:45 Plt Count 292 10^3/uL (130-450) 04/07/20 04:45 MPV 9.7 fL (7.9-10.8) 04/07/20 04:45 Neut # (Auto) 3.3 10^3/uL (1.5-6.6) 04/07/20 04:45 Lymph # (Auto) 1.6 10^3/uL (1.5-3.5) 04/07/20 04:45 [place] # (Auto) 0.5 10^3/uL (0.0-1.0) 04/07/20 04:45 Eos # (Auto) 0.5 10^3/uL (0.0-0.7) 04/07/20 04:45 Baso # (Auto) 0.0 10^3/uL (0.0-0.1) 04/07/20 04:45 Absolute Nucleated RBC 0.00 x10^3/uL 04/07/20 04:45 Nucleated RBC % 0.0 /100WBC 04/07/20 04:45 Sodium 138 mmol/L (135-145) 04/07/20 04:45 Potassium 3.9 mmol/L (3.5-5.0) 04/07/20 04:45 Chloride 110 mmol/L (101-111) 04/07/20 04:45 Carbon Dioxide 21 mmol/L (21-32) 04/07/20 04:45 Anion Gap 7.0 (6-13) 04/07/20 04:45 BUN < 5 mg/dL (6-20) L 04/07/20 04:45 Creatinine 0.5 mg/dL (0.4-1.0) 04/07/20 04:45 Estimated GFR (MDRD) 122 (>89) 04/07/20 04:45 Glucose 127 mg/dL (70-100) H 04/07/20 04:45 Lactic Acid 0.6 mmol/L (0.5-2.2) 04/06/20 01:57 Calcium 7.8 mg/dL (8.5-10.3) L 04/07/20 04:45 Magnesium 2.2 mg/dL (1.7-2.8) 04/06/20 04:21 Total Bilirubin 0.4 mg/dL (0.2-1.0) 04/05/20 23:58 AST 20 IU/L (10-42) 04/05/20 23:58 ALT 18 IU/L (10-60) 04/05/20 23:58 Alkaline Phosphatase 71 IU/L (42-121) 04/05/20 23:58 Total Protein 7.5 g/dL (6.7-8.2) 04/05/20 23:58 Albumin 4.0 g/dL (3.2-5.5) 04/05/20 23:58 Globulin 3.5 g/dL (2.1-4.2) 04/05/20 23:58 Albumin/Globulin Ratio 1.1 (1.0-2.2) 04/05/20 23:58 Lipase 28 U/L (22-51) 04/05/20 23:58 TSH 5.84 uIU/mL (0.34-5.60) H 04/06/20 04:21 Urine Color YELLOW 04/05/20 23:48 Urine Clarity CLEAR (CLEAR) 04/05/20 23:48 Urine pH 7.5 PH (5.0-7.5) 04/05/20 23:48 Ur Specific [place] 1.020 (1.002-1.030) 04/05/20 23:48 Urine Protein TRACE mg/dL (NEGATIVE) 04/05/20 23:48 Urine Glucose (UA) NEGATIVE mg/dL (NEGATIVE) 04/05/20 23:48 Urine Ketones 15 mg/dL (NEGATIVE) H 04/05/20 23:48 Urine Occult Blood NEGATIVE (NEGATIVE) 04/05/20 23:48 Urine Nitrite NEGATIVE (NEGATIVE) 04/05/20 23:48 Urine Bilirubin NEGATIVE (NEGATIVE) 04/05/20 23:48 Urine Urobilinogen 0.2 (NORMAL) E.U./dL (NORMAL) 04/05/20 23:48 Ur Leukocyte Esterase NEGATIVE (NEGATIVE) 04/05/20 23:48 Ur Microscopic Review NOT INDICATED 04/05/20 23:48 Urine Culture Comments NOT INDICATED 04/05/20 23:48 Nasal Adenovirus (PCR) NOT DETECTED 04/06/20 03:11 Nasal B. parapertussis DNA (PCR) NOT DETECTED 04/06/20 03:11 Nasal Coronavir 229E PCR NOT DETECTED 04/06/20 03:11 Nasal Coronavir HKU1 PCR NOT DETECTED 04/06/20 03:11 Nasal Coronavir NL63 PCR NOT DETECTED 04/06/20 03:11 Nasal Coronavir OC43 PCR NOT DETECTED 04/06/20 03:11 Nasal Enterovir/Rhinovir PCR NOT DETECTED 04/06/20 03:11 Nasal Influenza B PCR NOT DETECTED 04/06/20 03:11 Nasal Influenza A PCR NOT DETECTED 04/06/20 03:11 Nasal Parainfluen 1 PCR NOT DETECTED 04/06/20 03:11 Nasal Parainfluen 2 PCR NOT DETECTED 04/06/20 03:11 Nasal Parainfluen 3 PCR NOT DETECTED 04/06/20 03:11 Nasal Parainfluen 4 PCR NOT DETECTED 04/06/20 03:11 Nasal RSV (PCR) NOT DETECTED 04/06/20 03:11 Nasal B.pertussis DNA PCR NOT DETECTED 04/06/20 03:11 Nasal C.pneumoniae (PCR) NOT DETECTED 04/06/20 03:11 [place] Human Metapneumo PCR NOT DETECTED 04/06/20 03:11 Nasal M.pneumoniae (PCR) NOT DETECTED 04/06/20 03:11 Nasal SARS-CoV-2 (PCR) NOT DETECTED 04/06/20 03:11 ABX Reporting Has patient been on IV antibiotics over the past 48 hours?: Yes
[2020-04-07] MEDS: SODIUM CHLORIDE FLUSH 0.9% 10 ML SYRINGE IVP SCH ×3 (08:40→23:39)
[2020-04-07] MEDS: FAMOTIDINE 20 MG/2 ML VIAL IVP SCH ×2 (08:40→21:06)
--- NOTE | 2020-04-07 09:36 | PROVIDER PROGRESS NOTE ---
Subjective - General Admit Date: 04/06/20 Procedure Performed: HD #2 - Review of Systems General: positive: No symptoms HEENT: positive: No symptoms Pulmonary: positive: No symptoms Cardiovascular: positive: No symptoms Gastrointestinal: positive: Other (Decreased abdominal pain.) All Other Systems: positive: Reviewed and negative Objective - Patient Data Vital Signs: Vital Signs x48h Temp Pulse Resp BP Pulse Ox 04/07/20 07:15 36.7 C 77 16 136/89 H 100 Weight: Weight 04/05/20 04/06/20 04/07/20 23:59 23:59 23:59 Weight (kg) 45.813 kg 50.5 kg Intake & Output: Intake and Output Totals x24h 04/05/20 04/06/20 04/07/20 23:59 23:59 23:59 Intake Total 2500.000 1679.167 Output Total 2 Balance 2498.000 1679.167 - Lab Results Lab Results: 04/07/20 04:45 04/07/20 04:45 Other Lab Results: Lab Results x24hrs 04/07/20 04/07/20 Range/Units 04:45 04:45 WBC 5.9 (4.8-10.8) x10^3/uL RBC 3.54 L (4.20-5.40) 10^6/uL Hgb 11.3 L (12.0-16.0) g/dL Hct 35.3 L (37.0-47.0) % MCV 99.7 H (81.0-99.0) fL MCH 31.9 H (27.0-31.0) pg MCHC 32.0 (32.0-36.0) g/dL RDW 12.4 (12.0-15.0) % Plt Count 292 (130-450) 10^3/uL MPV 9.7 (7.9-10.8) fL Neut # (Auto) 3.3 (1.5-6.6) 10^3/uL Lymph # (Auto) 1.6 (1.5-3.5) 10^3/uL [place] # (Auto) 0.5 (0.0-1.0) 10^3/uL Eos # (Auto) 0.5 (0.0-0.7) 10^3/uL Baso # (Auto) 0.0 (0.0-0.1) 10^3/uL Absolute Nucleated RBC 0.00 x10^3/uL Nucleated RBC % 0.0 /100WBC Sodium 138 (135-145) mmol/L Potassium 3.9 (3.5-5.0) mmol/L Chloride 110 (101-111) mmol/L Carbon Dioxide 21 (21-32) mmol/L Anion Gap 7.0 (6-13) BUN < 5 L (6-20) mg/dL Creatinine 0.5 (0.4-1.0) mg/dL Estimated GFR (MDRD) 122 (>89) Glucose 127 H (70-100) mg/dL Calcium 7.8 L (8.5-10.3) mg/dL - Current Medications Current Medications: Current Medications Generic Name Dose Route Start Last Admin Trade Name Freq PRN Reason Stop Dose Admin Famotidine 20 mg 04/06/20 09:00 04/07/20 08:40 Famotidine 20 Mg/2 Ml Vial IVP 20 mg BID ISMAEL Administration Hydromorphone HCl 0.5 mg 04/06/20 01:52 04/06/20 03:22 Hydromorphone 0.5 Mg/0.5 Ml Syringe IVP 0.5 mg Q2H PRN Administration Pain 8 to 10 Potassium Chloride/Dextrose/Sod Cl 1,000 mls @ 125 mls/hr 04/06/20 02:00 04/07/20 09:10 IV 125 mls/hr .Q8H ISMAEL Infusion Piperacillin Sod/Tazobactam 100 mls @ 200 mls/hr 04/06/20 08:00 04/07/20 09:10 Sod 3.375 gm/ Sodium Chloride IV Infused Q6H ISMAEL Infusion Metronidazole 500 mg in 100 mls @ 100 mls/hr 04/06/20 14:00 04/07/20 06:37 Flagyl 500 Mg/100 Ml IV Infused Q8H ISMAEL Infusion Ondansetron HCl 4 mg 04/06/20 01:52 04/06/20 18:39 Ondansetron 4 Mg/2 Ml Vial IVP 4 mg Q6HR PRN Administration Nausea / Vomiting Sodium Chloride 10 ml 04/06/20 01:52 04/06/20 18:39 Sodium Chloride Flush 0.9% 10 Ml Syringe IVP 10 ml PRN PRN Administration NEEDED PER PROVIDER ORDERS Sodium Chloride 10 ml 04/06/20 09:00 04/07/20 08:40 Sodium Chloride Flush 0.9% 10 Ml Syringe IVP 10 ml 0100,0900,1700 ISMAEL Administration - Physical Exam General Appearance: positive: No acute distress, Alert Eyes Bilateral: positive: Normal inspection Respiratory: positive: Chest non-tender, No respiratory distress Cardiovascular: positive: Regular rate & rhythm Abdomen: positive: Nml bowel sounds, Tenderness (But improved since admission). negative: Guarding, Rebound Back: positive: Nml inspection Neurologic/Psychiatric: positive: Oriented x3 ABX Reporting Has patient been on IV antibiotics over the past 48 hours?: Yes Impression/Plan - Problem List Problem List: 1. Diverticulitis with contained perforation - Improving 2. Continue Zosyn and Flagyl 3. Start low residue diet 4. Repeat the CT scan in the AM.
[2020-04-07] MEDS: ACETAMINOPHEN 500 MG TABLET PO PRN (09:43)
[2020-04-08] MEDS: PIPERACILLIN/TAZOBACTAM 3.375 GM in SODIUM CHLORIDE 0.9% MINIBAG 100 ML IV SCH ×4 (01:44→20:00)
[2020-04-08] MEDS: D5NS W/20 MEQ KCL 1,000 ML IV SCH ×3 (01:44→19:59)
[2020-04-08 04:43] LABS: BASOPHILS # (AUTO) 0.1 10^3/uL (0.0-0.1); EOSINOPHILS # (AUTO) 0.6 10^3/uL (0.0-0.7); EOSINOPHILS % (AUTO) 12.1 %; HGB - HEMOGLOBIN 10.9 g/dL (12.0-16.0); LYMPHOCYTES # (AUTO) 1.8 10^3/uL (1.5-3.5); LYMPHOCYTES % (AUTO) 36.3 %; MEAN CORPUSCULAR HEMOGLOBIN 31.1 pg (27.0-31.0); MEAN CORPUSCULAR HGB CONC 31.4 g/dL (32.0-36.0); MEAN CORPUSCULAR VOLUME 98.9 fL (81.0-99.0); MEAN PLATELET VOLUME 9.1 fL (7.9-10.8); MONOCYTES # (AUTO) 0.4 10^3/uL (0.0-1.0); NEUTROPHILS # (AUTO) 2.1 10^3/uL (1.5-6.6); NEUTROPHILS % (AUTO) 42.4 %; PLT - PLATELET COUNT 308 10^3/uL (130-450); RED BLOOD COUNT 3.51 10^6/uL (4.20-5.40); RED CELL DISTRIBUTION WIDTH 12.4 % (12.0-15.0); WHITE BLOOD COUNT 4.9 x10^3/uL (4.8-10.8)
[2020-04-08 04:51] LABS: CALCIUM 8.3 mg/dL (8.5-10.3); CREATININE 0.7 mg/dL (0.4-1.0)
[2020-04-08] MEDS: metroNIDAZOLE 500 MG/100 ML 500 MG/100 ML BAG IV SCH ×3 (05:37→21:41)
[2020-04-08] MEDS: SODIUM CHLORIDE FLUSH 0.9% 10 ML SYRINGE IVP PRN (05:50)
[2020-04-08] MEDS: ONDANSETRON 4 MG/2 ML VIAL IVP PRN (05:50)
[2020-04-08] MEDS: ACETAMINOPHEN 500 MG TABLET PO PRN (06:16)
[2020-04-08] MEDS: FAMOTIDINE 20 MG/2 ML VIAL IVP SCH ×2 (09:02→21:35)
[2020-04-08] MEDS: SODIUM CHLORIDE FLUSH 0.9% 10 ML SYRINGE IVP SCH ×2 (09:02→17:15)
[2020-04-08] MEDS ORDERED: IOVERSOL 320 100 ML VIAL IVP ONE ×2 (09:11→13:02)
--- NOTE | 2020-04-08 10:17 | CT Report ---
PROCEDURE: Abdomen/Pelvis W INDICATIONS: Perforated viscus CONTRAST: IV CONTRAST: Optiray 320 ml: 100 PO CONTRAST: *NO PO CONTRAST TECHNIQUE: After the administration of IV contrast, 5 mm thick sections acquired from the diaphragms to the symp hysis. 5 mm thick coronal and sagittal reformats were acquired. For radiation dose reduction, the f ollowing was used: automated exposure control, adjustment of mA and/or kV according to patient size. COMPARISON: 04/06/2020 FINDINGS: Image quality: Excellent. ABDOMEN: Lung bases: Lung bases are clear. Heart size is normal. Solid organs: Liver and spleen are normal in size and enhancement. Gallbladder is slightly distende d but with a normal wall thickness by CT. Biliary system is non dilated. Pancreas enhances normally . No adrenal nodules. Kidneys demonstrate normal size and enhancement, without hydronephrosis. Peritoneum and bowel: Free intraperitoneal air has increased in quantity since the prior study. Ther e is increased quantity of solid stool throughout the colon, similar compared to the prior study. The re are focal mild inflammatory changes around the sigmoid colon but no significant free fluid no disc rete abscess formation. Stomach and small bowel are within normal limits. Nodes and vessels: No retroperitoneal or mesenteric adenopathy by size criteria. Aorta and inferior vena cava are normal in size. Miscellaneous: No ventral hernias. PELVIS: Genitourinary: Bladder wall thickness is normal. Miscellaneous: No inguinal hernias or adenopathy. Bones: No suspicious bony lesions. No vertebral body compression fractures. IMPRESSION: 1. Increased quantity of free intraperitoneal air since the prior study suggests ongoing or uncontain ed hollow viscus perforation. This could be attributed to laparoscopic changes if there has been rece nt intervention, or acute perforated diverticulitis, though the degree of inflammation in the sigmoid colon is mild. Given the increased quantity of solid stool, this could also be secondary to stearcor al perforation. 2. No free fluid or abscess formation. 3. Discussed with Dr. Nova at 0915 hours, [place] standard time. Reviewed by: Erinn Cheung MD on 04/08/2020 9:15 AM [facility] Approved by: Erinn Cheung MD on 04/08/2020 9:15 AM [facility] Station ID: [id number]
--- NOTE | 2020-04-08 10:46 | PROVIDER PROGRESS NOTE ---
Assessment/Plan - Problem List (1) Diverticulitis of intestine with perforation Qualifiers: Diverticulitis site: small intestine Diverticulitis bleeding: without bleeding Qualified Code(s): K57.00 - Diverticulitis of small intestine with perforation and abscess without bleeding Assessment/Plan: CT scan of abdomen pelvis done today 04/08/20 showed increased quantity of free intraperitoneal air since the previous study [place] with general surgery was aware of the findings and maintains that medical management be continued. Will defer to general surgery for further direction with patient's care. The patient is on a soft low fiber diet. Patient's WBC today is 4.9. We will continue antibiotics with Zosyn. Patient reports mild pain. Pain management with tylenol and Dilaudid as needed. Patient continues to be afebrile and her vitals are stable. (2) Hypothyroidism Assessment/Plan: Will resume patient's Synthroid 75 mcg p.o. before every meal when appropriate to do so. - Current Meds Current Meds: Current Medications Generic Name Dose Route Start Last Admin Trade Name Freq PRN Reason Stop Dose Admin Acetaminophen 500 mg 04/07/20 08:58 04/08/20 06:16 Acetaminophen 500 Mg Tablet PO 500 mg Q4HR PRN Administration Pain or Fever > 38C (100.4F) Famotidine 20 mg 04/06/20 09:00 04/08/20 09:02 Famotidine 20 Mg/2 Ml Vial IVP 20 mg BID ISMAEL Administration Hydromorphone HCl 0.5 mg 04/06/20 01:52 04/06/20 03:22 Hydromorphone 0.5 Mg/0.5 Ml Syringe IVP 0.5 mg Q2H PRN Administration Pain 8 to 10 Potassium Chloride/Dextrose/Sod Cl 1,000 mls @ 125 mls/hr 04/06/20 02:00 04/08/20 01:44 IV 125 mls/hr .Q8H ISMAEL Administration Piperacillin Sod/Tazobactam 100 mls @ 200 mls/hr 04/06/20 08:00 04/08/20 09:51 Sod 3.375 gm/ Sodium Chloride IV Infused Q6H ISMAEL Infusion Metronidazole 500 mg in 100 mls @ 100 mls/hr 04/06/20 14:00 04/08/20 06:52 Flagyl 500 Mg/100 Ml IV Infused Q8H ISMAEL Infusion Ondansetron HCl 4 mg 04/06/20 01:52 04/08/20 05:50 Ondansetron 4 Mg/2 Ml Vial IVP 4 mg Q6HR PRN Administration Nausea / Vomiting Sodium Chloride 10 ml 04/06/20 01:52 04/08/20 05:50 Sodium Chloride Flush 0.9% 10 Ml Syringe IVP 10 ml PRN PRN Administration NEEDED PER PROVIDER ORDERS Sodium Chloride 10 ml 04/06/20 09:00 04/08/20 09:02 Sodium Chloride Flush 0.9% 10 Ml Syringe IVP 10 ml 0100,0900,1700 ISMAEL Administration - Lab Result Fish Bone Diagrams: 04/08/20 04:31 04/08/20 04:31 Subjective - Subjective Patient Reports: Other (Patient reports feeling better. She rates her abdominal pain is mild. She continues to ambulate around the nursing floor with no difficulties. She was placed on a soft diet today with no complications.) Objective Vital Signs: Vital Signs - 24 hr 04/07/20 04/07/20 04/08/20 16:14 23:39 07:55 Temperature 36.5 C 36.6 C 36.7 C Heart Rate [ 71 55 L 54 L Brachial] Respiratory 18 18 17 Rate Blood Pressure 139/80 H 111/66 112/60 [Left Brachial artery] O2 Saturation 100 100 99 Oxygen O2 Source Room air I&O (Last 24 Hrs): Intake and Output Totals x24h 04/06/20 04/07/20 04/08/20 23:59 23:59 23:59 Intake Total 2500.000 3356.251 1300 Output Total 2 700 Balance 2498.000 3356.251 600 General: Alert, Oriented x3, Mild distress HEENT: PERRLA, EOMI Neck: Supple, No JVD Neuro: Alert, Non Focal, Oriented Times 3 Cardiovascular: Regular rate Respiratory: Chest non-tender, No respiratory distress, Breath sounds nml Abdomen: Other (Mild tenderness. Soft) Extremities: No clubbing, No cyanosis, No edema Skin: No rashes - Results Results: Laboratory Results WBC 4.9 x10^3/uL (4.8-10.8) 04/08/20 04:31 RBC 3.51 10^6/uL (4.20-5.40) L 04/08/20 04:31 Hgb 10.9 g/dL (12.0-16.0) L 04/08/20 04:31 Hct 34.7 % (37.0-47.0) L 04/08/20 04:31 MCV 98.9 fL (81.0-99.0) 04/08/20 04:31 MCH 31.1 pg (27.0-31.0) H 04/08/20 04:31 MCHC 31.4 g/dL (32.0-36.0) L 04/08/20 04:31 RDW 12.4 % (12.0-15.0) 04/08/20 04:31 Plt Count 308 10^3/uL (130-450) 04/08/20 04:31 MPV 9.1 fL (7.9-10.8) 04/08/20 04:31 Neut # (Auto) 2.1 10^3/uL (1.5-6.6) 04/08/20 04:31 Lymph # (Auto) 1.8 10^3/uL (1.5-3.5) 04/08/20 04:31 [place] # (Auto) 0.4 10^3/uL (0.0-1.0) 04/08/20 04:31 Eos # (Auto) 0.6 10^3/uL (0.0-0.7) 04/08/20 04:31 Baso # (Auto) 0.1 10^3/uL (0.0-0.1) 04/08/20 04:31 Absolute Nucleated RBC 0.00 x10^3/uL 04/08/20 04:31 Nucleated RBC % 0.0 /100WBC 04/08/20 04:31 Sodium 140 mmol/L (135-145) 04/08/20 04:31 Potassium 4.2 mmol/L (3.5-5.0) 04/08/20 04:31 Chloride 109 mmol/L (101-111) 04/08/20 04:31 Carbon Dioxide 22 mmol/L (21-32) 04/08/20 04:31 Anion Gap 9.0 (6-13) 04/08/20 04:31 BUN 6 mg/dL (6-20) 04/08/20 04:31 Creatinine 0.7 mg/dL (0.4-1.0) 04/08/20 04:31 Estimated GFR (MDRD) 83 (>89) L 04/08/20 04:31 Glucose 123 mg/dL (70-100) H 04/08/20 04:31 Lactic Acid 0.6 mmol/L (0.5-2.2) 04/06/20 01:57 Calcium 8.3 mg/dL (8.5-10.3) L 04/08/20 04:31 Magnesium 2.2 mg/dL (1.7-2.8) 04/06/20 04:21 Total Bilirubin 0.4 mg/dL (0.2-1.0) 04/05/20 23:58 AST 20 IU/L (10-42) 04/05/20 23:58 ALT 18 IU/L (10-60) 04/05/20 23:58 Alkaline Phosphatase 71 IU/L (42-121) 04/05/20 23:58 Total Protein 7.5 g/dL (6.7-8.2) 04/05/20 23:58 Albumin 4.0 g/dL (3.2-5.5) 04/05/20 23:58 Globulin 3.5 g/dL (2.1-4.2) 04/05/20 23:58 Albumin/Globulin Ratio 1.1 (1.0-2.2) 04/05/20 23:58 Lipase 28 U/L (22-51) 04/05/20 23:58 TSH 5.84 uIU/mL (0.34-5.60) H 04/06/20 04:21 Urine Color YELLOW 04/05/20 23:48 Urine Clarity CLEAR (CLEAR) 04/05/20 23:48 Urine pH 7.5 PH (5.0-7.5) 04/05/20 23:48 Ur Specific [place] 1.020 (1.002-1.030) 04/05/20 23:48 Urine Protein TRACE mg/dL (NEGATIVE) 04/05/20 23:48 Urine Glucose (UA) NEGATIVE mg/dL (NEGATIVE) 04/05/20 23:48 Urine Ketones 15 mg/dL (NEGATIVE) H 04/05/20 23:48 Urine Occult Blood NEGATIVE (NEGATIVE) 04/05/20 23:48 Urine Nitrite NEGATIVE (NEGATIVE) 04/05/20 23:48 Urine Bilirubin NEGATIVE (NEGATIVE) 04/05/20 23:48 Urine Urobilinogen 0.2 (NORMAL) E.U./dL (NORMAL) 04/05/20 23:48 Ur Leukocyte Esterase NEGATIVE (NEGATIVE) 04/05/20 23:48 Ur Microscopic Review NOT INDICATED 04/05/20 23:48 Urine Culture Comments NOT INDICATED 04/05/20 23:48 Nasal Adenovirus (PCR) NOT DETECTED 04/06/20 03:11 Nasal B. parapertussis DNA (PCR) NOT DETECTED 04/06/20 03:11 Nasal Coronavir 229E PCR NOT DETECTED 04/06/20 03:11 Nasal Coronavir HKU1 PCR NOT DETECTED 04/06/20 03:11 Nasal Coronavir NL63 PCR NOT DETECTED 04/06/20 03:11 Nasal Coronavir OC43 PCR NOT DETECTED 04/06/20 03:11 Nasal Enterovir/Rhinovir PCR NOT DETECTED 04/06/20 03:11 Nasal Influenza B PCR NOT DETECTED 04/06/20 03:11 Nasal Influenza A PCR NOT DETECTED 04/06/20 03:11 Nasal Parainfluen 1 PCR NOT DETECTED 04/06/20 03:11 Nasal Parainfluen 2 PCR NOT DETECTED 04/06/20 03:11 Nasal Parainfluen 3 PCR NOT DETECTED 04/06/20 03:11 Nasal Parainfluen 4 PCR NOT DETECTED 04/06/20 03:11 Nasal RSV (PCR) NOT DETECTED 04/06/20 03:11 Nasal B.pertussis DNA PCR NOT DETECTED 04/06/20 03:11 Nasal C.pneumoniae (PCR) NOT DETECTED 04/06/20 03:11 [place] Human Metapneumo PCR NOT DETECTED 04/06/20 03:11 Nasal M.pneumoniae (PCR) NOT DETECTED 04/06/20 03:11 Nasal SARS-CoV-2 (PCR) NOT DETECTED 04/06/20 03:11 ABX Reporting Has patient been on IV antibiotics over the past 48 hours?: Yes
[2020-04-08] MEDS: LACTULOSE 10 GM /15 ML UDC PO SCH ×2 (10:54→21:34)
[2020-04-08] MEDS ORDERED: BISACODYL 10 MG SUPP PR ONE (13:03)
[2020-04-08] MEDS: MINERAL OIL 473 ML BOTTLE PO SCH (13:39)
--- NOTE | 2020-04-08 18:40 | PROVIDER PROGRESS NOTE ---
Subjective - General Admit Date: 04/06/20 Procedure Performed: HD #3 - Review of Systems General: positive: No symptoms HEENT: positive: No symptoms Pulmonary: positive: No symptoms Cardiovascular: positive: No symptoms Gastrointestinal: positive: Flatus, Other (Decreased abdominal pain.). negative: Nausea, Vomiting All Other Systems: positive: Reviewed and negative - Other Other Information/Narrative: Feeling much better today. Small hard stool this morning after lactulose. Pain is greatly improved. She is tolerating a low residue diet without difficulty. CT shows heavy stool burden and increased air but improved inflammation. Objective - Patient Data Vital Signs: Vital Signs x48h Temp Pulse Resp BP Pulse Ox 04/08/20 16:13 36.8 C 56 L 16 144/88 H 100 Weight: Weight 04/06/20 04/07/20 04/08/20 23:59 23:59 23:59 Weight (kg) 50.5 kg Intake & Output: Intake and Output Totals x24h 04/06/20 04/07/20 04/08/20 23:59 23:59 23:59 Intake Total 2500.000 3356.251 3090 Output Total 2 1100 Balance 2498.000 3356.251 1989 Lab Results Lab Results: 04/08/20 04:31 04/08/20 04:31 Other Lab Results: Lab Results x24hrs 04/08/20 04/08/20 Range/Units 04:31 04:31 WBC 4.9 (4.8-10.8) x10^3/uL RBC 3.51 L (4.20-5.40) 10^6/uL Hgb 10.9 L (12.0-16.0) g/dL Hct 34.7 L (37.0-47.0) % MCV 98.9 (81.0-99.0) fL MCH 31.1 H (27.0-31.0) pg MCHC 31.4 L (32.0-36.0) g/dL RDW 12.4 (12.0-15.0) % Plt Count 308 (130-450) 10^3/uL MPV 9.1 (7.9-10.8) fL Neut # (Auto) 2.1 (1.5-6.6) 10^3/uL Lymph # (Auto) 1.8 (1.5-3.5) 10^3/uL Heard # (Auto) 0.4 (0.0-1.0) 10^3/uL Eos # (Auto) 0.6 (0.0-0.7) 10^3/uL Baso # (Auto) 0.1 (0.0-0.1) 10^3/uL Absolute Nucleated RBC 0.00 x10^3/uL Nucleated RBC % 0.0 /100WBC Sodium 140 (135-145) mmol/L Potassium 4.2 (3.5-5.0) mmol/L Chloride 109 (101-111) mmol/L Carbon Dioxide 22 (21-32) mmol/L Anion Gap 9.0 (6-13) BUN 6 (6-20) mg/dL Creatinine 0.7 (0.4-1.0) mg/dL Estimated GFR (MDRD) 83 L (>89) Glucose 123 H (70-100) mg/dL Calcium 8.3 L (8.5-10.3) mg/dL - Imaging Results Radiology Imaging: positive: Final report received, Discussed with rads - Current Medications Current Medications: Current Medications Generic Name Dose Route Start Last Admin Trade Name Freq PRN Reason Stop Dose Admin Acetaminophen 500 mg 04/07/20 08:58 04/08/20 06:16 Acetaminophen 500 Mg Tablet PO 500 mg Q4HR PRN Administration Pain or Fever > 38C (100.4F) Famotidine 20 mg 04/06/20 09:00 04/08/20 09:02 Famotidine 20 Mg/2 Ml Vial IVP 20 mg BID ISMAEL Administration Hydromorphone HCl 0.5 mg 04/06/20 01:52 04/06/20 03:22 Hydromorphone 0.5 Mg/0.5 Ml Syringe IVP 0.5 mg Q2H PRN Administration Pain 8 to 10 Potassium Chloride/Dextrose/Sod Cl 1,000 mls @ 125 mls/hr 04/06/20 02:00 04/08/20 11:37 IV 125 mls/hr .Q8H ISMAEL Administration Piperacillin Sod/Tazobactam 100 mls @ 200 mls/hr 04/06/20 08:00 04/08/20 1 5:34 Sod 3.375 gm/ Sodium Chloride IV Infused Q6H [facility]MA[facility] Infusion Metronidazole 500 mg in 100 mls @ 100 mls/hr 04/06/20 14:00 04/08/20 15:28 Flagyl 500 Mg/100 Ml IV Infused Q8H [facility] Infusion Lactulose 10 gm 04/08/20 11:00 04/08/20 10:54 Lactulose 10 Gm /15 Ml Udc PO 10 gm BID ISMAEL Administration Mineral Oil 15 ml 04/08/20 13:00 04/08/20 13:39 Mineral Oil 473 Ml Bottle PO 15 mg DAILY ISMAEL Administration Ondansetron HCl 4 mg 04/06/20 01:52 04/08/20 05:50 Ondansetron 4 Mg/2 Ml Vial IVP 4 mg Q6HR PRN Administration Nausea / Vomiting Sodium Chloride 10 ml 04/06/20 01:52 04/08/20 05:50 Sodium Chloride Flush 0.9% 10 Ml Syringe IVP 10 ml PRN PRN Administration NEEDED PER PROVIDER ORDERS Sodium Chloride 10 ml 04/06/20 09:00 04/08/20 17:15 Sodium Chloride Flush 0.9% 10 Ml Syringe IVP Not Given 0100,0900,1700 [facility] - Physical Exam General Appearance: positive: No acute distress, Alert Respiratory: positive: Chest non-tender, No respiratory distress Cardiovascular: positive: Regular rate & rhythm Abdomen: positive: No distention, Other (Minimal tenderness to palpation with active bowel sounds) ABX Reporting Has patient been on IV antibiotics over the past 48 hours?: Yes Impression/Plan - Problem List Problem List: Perforated diverticulitis - improving. 1. Continue IV antibiotic 2. Increase cathartics but avoid enemas due to perforation. 3. Will need a bowel program after discharge to prevent a recurrent issue. 4. Attempt manual disimpaction this afternoon if no more results
[2020-04-09] MEDS: SODIUM CHLORIDE FLUSH 0.9% 10 ML SYRINGE IVP SCH ×3 (01:29→16:32)
[2020-04-09] MEDS: PIPERACILLIN/TAZOBACTAM 3.375 GM in SODIUM CHLORIDE 0.9% MINIBAG 100 ML IV SCH ×4 (01:39→20:10)
[2020-04-09 05:01] LABS: BASOPHILS # (AUTO) 0.1 10^3/uL (0.0-0.1); BASOPHILS % (AUTO) 1.3 %; EOSINOPHILS # (AUTO) 0.7 10^3/uL (0.0-0.7); EOSINOPHILS % (AUTO) 12.3 %; HGB - HEMOGLOBIN 11.5 g/dL (12.0-16.0); LYMPHOCYTES # (AUTO) 1.7 10^3/uL (1.5-3.5); LYMPHOCYTES % (AUTO) 32.7 %; MEAN CORPUSCULAR HEMOGLOBIN 31.7 pg (27.0-31.0); MEAN CORPUSCULAR HGB CONC 32.4 g/dL (32.0-36.0); MEAN CORPUSCULAR VOLUME 97.8 fL (81.0-99.0); MONOCYTES # (AUTO) 0.5 10^3/uL (0.0-1.0); MONOCYTES % (AUTO) 9.3 %; NEUTROPHILS # (AUTO) 2.3 10^3/uL (1.5-6.6); NEUTROPHILS % (AUTO) 44.2 %; PLT - PLATELET COUNT 366 10^3/uL (130-450); RED BLOOD COUNT 3.63 10^6/uL (4.20-5.40); RED CELL DISTRIBUTION WIDTH 12.2 % (12.0-15.0); WHITE BLOOD COUNT 5.3 x10^3/uL (4.8-10.8)
[2020-04-09 05:13] LABS: CALCIUM 8.4 mg/dL (8.5-10.3); CREATININE 0.7 mg/dL (0.4-1.0)
[2020-04-09] MEDS: metroNIDAZOLE 500 MG/100 ML 500 MG/100 ML BAG IV SCH (05:31)
[2020-04-09] MEDS: D5NS W/20 MEQ KCL 1,000 ML IV SCH ×3 (07:06→16:32)
[2020-04-09] MEDS: SODIUM CHLORIDE FLUSH 0.9% 10 ML SYRINGE IVP PRN ×2 (07:53→13:18)
[2020-04-09] MEDS: LACTULOSE 10 GM /15 ML UDC PO SCH ×2 (08:05→20:10)
[2020-04-09] MEDS: MINERAL OIL 473 ML BOTTLE PO SCH (08:05)
[2020-04-09] MEDS: FAMOTIDINE 20 MG/2 ML VIAL IVP SCH ×2 (08:06→20:10)
--- NOTE | 2020-04-09 11:14 | PROVIDER PROGRESS NOTE ---
Subjective - Prog Note Date Prog Note Date: 04/09/20 - Subjective Subjective: She reports feeling well today. States her pain is controlled and quite minimal. Has been tolerating a diet without any nausea or vomiting. She has had multiple bowel movements today. Has not noticed any blood. Current Medications - Current Medications Current Medications: Active Medications Acetaminophen (Acetaminophen 500 Mg Tablet) 500 mg PO Q4HR PRN PRN Reason: Pain or Fever > 38C (100.4F) Last Admin: 04/08/20 06:16 Dose: 500 mg Documented by: Famotidine (Famotidine 20 Mg/2 Ml Vial) 20 mg IVP BID [facility] Last Admin: 04/09/20 08:06 Dose: 20 mg Documented by: Hydromorphone HCl (Hydromorphone 0.5 Mg/0.5 Ml Syringe) 0.5 mg IVP Q2H PRN PRN Reason: Pain 8 to 10 Last Admin: 04/06/20 03:22 Dose: 0.5 mg Documented by: Potassium Chloride/Dextrose/Sod Cl () 1,000 mls @ 125 mls/hr IV .Q8H [facility] Last Admin: 04/09/20 10:02 Dose: 125 mls/hr Documented by: Piperacillin Sod/Tazobactam (Sod 3.375 gm/ Sodium Chloride) 100 mls @ 200 mls/hr IV Q6H [facility] Last Infusion: 04/09/20 08:40 Dose: Infused Documented by: Lactulose (Lactulose 10 Gm /15 Ml Udc) 10 gm PO BID [facility] Last Admin: 04/09/20 08:05 Dose: 10 gm Documented by: Levothyroxine Sodium (Levothyroxine 75 Mcg Tablet) 75 mcg PO QDAC [facility] Mineral Oil (Mineral Oil 473 Ml Bottle) 15 ml PO DAILY [facility] Last Admin: 04/09/20 08:05 Dose: 15 mg Documented by: Ondansetron HCl (Ondansetron 4 Mg/2 Ml Vial) 4 mg IVP Q6HR PRN PRN Reason: Nausea / Vomiting Last Admin: 04/08/20 05:50 Dose: 4 mg Documented by: Sodium Chloride (Sodium Chloride Flush 0.9% 10 Ml Syringe) 10 ml IVP PRN PRN PRN Reason: NEEDED PER PROVIDER ORDERS Last Admin: 04/09/20 07:53 Dose: 10 ml Documented by: Sodium Chloride (Sodium Chloride Flush 0.9% 10 Ml Syringe) 10 ml IVP 0100,0900,1700 ISMA[facility] Last Admin: 04/09/20 08:52 Dose: Not Given Documented by: Levothyroxine [Synthroid] 75 mcg PO QDAC 04/05/20 Objective - Vital Signs/Intake & Output Reviewed Vital Signs: Yes Vital Signs: Vital Signs x48h Temp Pulse Resp BP Pulse Ox 04/09/20 08:00 36.6 C 63 14 150/70 H 100 Intake & Output: Intake & Output 04/06/20 04/07/20 04/08/20 04/09/20 23:59 23:59 23:59 23:59 Intake Total 2500.000 3356.251 4700.417 1893.750 Output Total 2 1100 800 Balance 2498.000 3356.251 3600.417 1093.750 - Objective General Appearance: positive: No acute distress, Alert Eyes Bilateral: positive: Normal inspection, Conjunctivae nml ENT: positive: ENT inspection nml Neck: positive: Nml inspection Respiratory: positive: No respiratory distress, Breath sounds nml Cardiovascular: positive: Regular rate & rhythm. negative: Tachycardia Abdomen: positive: Nml bowel sounds, No distention, Tenderness (Minimal tenderness in the left and right lower quadrants). negative: Guarding, Rebound Skin: positive: Warm, Dry Extremities: positive: No pedal edema - Lab Results Fish Bones: 04/09/20 04:40 04/09/20 04:40 Other Labs: Lab Results x24hrs 04/09/20 04/09/20 Range/Units 04:40 04:40 WBC 5.3 (4.8-10.8) x10^3/uL RBC 3.63 L (4.20-5.40) 10^6/uL Hgb 11.5 L (12.0-16.0) g/dL Hct 35.5 L (37.0-47.0) % MCV 97.8 (81.0-99.0) fL MCH 31.7 H (27.0-31.0) pg MCHC 32.4 (32.0-36.0) g/dL RDW 12.2 (12.0-15.0) % Plt Count 366 (130-450) 10^3/uL MPV 9.0 (7.9-10.8) fL Neut # (Auto) 2.3 (1.5-6.6) 10^3/uL Lymph # (Auto) 1.7 (1.5-3.5) 10^3/uL Floyd # (Auto) 0.5 (0.0-1.0) 10^3/uL Eos # (Auto) 0.7 (0.0-0.7) 10^3/uL Baso # (Auto) 0.1 (0.0-0.1) 10^3/uL Absolute Nucleated RBC 0.00 x10^3/uL Nucleated RBC % 0.0 /100WBC Sodium 140 (135-145) mmol/L Potassium 3.8 (3.5-5.0) mmol/L Chloride 108 (101-111) mmol/L Carbon Dioxide 24 (21-32) mmol/L Anion Gap 8.0 (6-13) BUN 6 (6-20) mg/dL Creatinine 0.7 (0.4-1.0) mg/dL Estimated GFR (MDRD) 83 L (>89) Glucose 124 H (70-100) mg/dL Calcium 8.4 L (8.5-10.3) mg/dL ABX Reporting Has patient been on IV antibiotics over the past 48 hours?: Yes Assessment/Plan - Problem List (1) Diverticulitis of intestine with perforation Impression: She appears to be clinically improving. Repeat CT of the abdomen pelvis yesterday showed increasing free air but only mild inflammation in the sigmoid colon. Her white count remains normal and she is tolerating a diet. We will keep her on Zosyn IV with today being day 4 of antibiotics. We will discontinue Flagyl as she is already receiving anaerobic coverage with Zosyn. Continue with diet as tolerated. Continue current pain regimen. Appreciate general surgery input. Qualifiers: Diverticulitis bleeding: without bleeding Qualified Code(s): K57.00 - Diverticulitis of small intestine with perforation and abscess without bleeding (2) Hypothyroidism Impression: Stable. Continue Synthroid.
[2020-04-10] MEDS: D5NS W/20 MEQ KCL 1,000 ML IV SCH (01:55)
[2020-04-10] MEDS: PIPERACILLIN/TAZOBACTAM 3.375 GM in SODIUM CHLORIDE 0.9% MINIBAG 100 ML IV SCH ×2 (01:56→08:43)
[2020-04-10] MEDS: SODIUM CHLORIDE FLUSH 0.9% 10 ML SYRINGE IVP SCH ×2 (01:57→08:44)
[2020-04-10] MEDS ORDERED: LEVOTHYROXINE 75 MCG TABLET PO SCH (07:00)
[2020-04-10 08:28] LABS: BASOPHILS # (AUTO) 0.1 10^3/uL (0.0-0.1); BASOPHILS % (AUTO) 1.1 %; EOSINOPHILS # (AUTO) 0.6 10^3/uL (0.0-0.7); EOSINOPHILS % (AUTO) 8.6 %; HGB - HEMOGLOBIN 13.3 g/dL (12.0-16.0); LYMPHOCYTES # (AUTO) 1.7 10^3/uL (1.5-3.5); MEAN CORPUSCULAR HEMOGLOBIN 31.4 pg (27.0-31.0); MEAN CORPUSCULAR HGB CONC 32.1 g/dL (32.0-36.0); MEAN CORPUSCULAR VOLUME 97.9 fL (81.0-99.0); MEAN PLATELET VOLUME 8.7 fL (7.9-10.8); MONOCYTES # (AUTO) 0.6 10^3/uL (0.0-1.0); MONOCYTES % (AUTO) 8.6 %; NEUTROPHILS # (AUTO) 4.3 10^3/uL (1.5-6.6); NEUTROPHILS % (AUTO) 58.6 %; PLT - PLATELET COUNT 461 10^3/uL (130-450); RED BLOOD COUNT 4.23 10^6/uL (4.20-5.40); RED CELL DISTRIBUTION WIDTH 12.4 % (12.0-15.0); WHITE BLOOD COUNT 7.3 x10^3/uL (4.8-10.8)
[2020-04-10] MEDS: LACTULOSE 10 GM /15 ML UDC PO SCH (08:43)
[2020-04-10] MEDS: FAMOTIDINE 20 MG/2 ML VIAL IVP SCH (08:43)
[2020-04-10 08:48] VITALS: BP 144/82
[2020-04-10 08:54] LABS: CALCIUM 8.8 mg/dL (8.5-10.3); CREATININE 0.7 mg/dL (0.4-1.0)
[2020-04-10] MEDS: MINERAL OIL 473 ML BOTTLE PO SCH (09:06)
--- NOTE | 2020-04-10 10:57 | Discharge Plan ---
Discharge Plan Problem Reviewed?: Yes Disposition: Home, Self Care Condition: Stable Prescriptions: Ciprofloxacin [Cipro] 500 mg PO BID 7 Days #28 tab metroNIDAZOLE [Flagyl] 500 mg PO TID 7 Days #42 tab polyethylene glycoL 3350 [Miralax] 17 gm PO DAILY #14 packet Diet: Soft Activity Restrictions: Activity as Tolerated Instruction Topics: Diverticulitis Dc Health Concerns: You were seen in the hospital because of diverticulitis which is inflammation of part of your colon. You were treated with IV antibiotics and evaluated by the surgeon. We repeated a CT scan of your abdomen which showed inflammation had improved although he still had a little bit of air in your abdomen, this was stable. Your pain has been controlled and you have been able to tolerate a diet. You are now stable for discharge home. You will need to take the antibiotics for another week as prescribed. Plan of Treatment: Please take Ciprofloxacin 500 mg twice a day for 7 more days. Please take Flagyl 500 mg 3 times a day for 7 more days. Please take mineral oil 15 mL 2-3 times a week. Please take MiraLAX on a daily basis. This is important as the surgeon felt that your constipation was likely a contributing factor to the diverticulitis. If you develop diarrhea due to the laxatives then you can cut down on the usage but ideally you should be having 2-3 bowel movements a day. It is important to follow-up with your primary care provider in 1 week or so to ensure that you are doing well. They should refer you to the general surgeon as you will need a colonoscopy in about 6 to 8 weeks after the inflammation has improved. Care Goals: Please return to the emergency department if you develop any worsening abdominal pain, nausea, vomiting, fevers, chills. Assessment: The patient expressed understanding of the treatment plan. Additional Instructions or Follow Up instructions: Please follow-up with your primary care provider in 1 week to ensure that you are doing well. It is recommended that you follow-up with a general surgeon and your primary care provider can place a referral. You will need a colonoscopy in about 6 to 8 weeks. No Smoking: If you smoke, Please STOP! Call for help. Follow-up with: Krystina Tellez ARNP, [employer] [Primary Care Provider] -
--- NOTE | 2020-04-10 11:09 | DISCHARGE SUMMARY ---
"Discharge Summary Admit Date: 04/06/20 Discharge Date: 04/10/20 Discharging Provider: Diego Quinones Primary Care Provider: Krystina Tellez Code Status: Attempt Resuscitation Condition at Discharge: Stable Discharge Disposition: 01 Home, Self Care - DIAGNOSES Admission Diagnoses: Sepsis Sigmoid diverticulitis Perforated divreticulum Ileus Hypothyroidism Discharge Diagnoses with Status of Each Condition: Sepsis - resolved. Diverticulitis with perforation - improved. Hypothyroidism - stable. - HPI History of Present Illness: Please refer to H&P of Dr. Buckley on 04/06/20. In summay, this is a 69-year-old female who presented with abdominal pain and found to have diverticulitis with perforation. - CONSULTS | PROCEDURES Consultations: General Surgery - HOSPITAL COURSE Hospital Course: She was admitted to the floor for sepsis secondary to diverticulitis with contained perforation. She is treated with Zosyn IV initially. She was evaluated by general surgery who recommended no intervention for the time being and to repeat imaging in a couple of days. With continued antibiotics, her white count normalized and her pain was controlled without any opiates. A repeat CT abdomen pelvis was obtained 2 days after admission which showed increased quantity of free intraperitoneal air. The degree of inflammation in the sigmoid colon is mild. There was also a note of increased quantity of solid stool. General surgery reviewed the imaging and recommended continuing antibiotics and a trial of laxatives. The patient was able to have multiple bowel movements after being given mineral oil and lactulose. She continue to remain afebrile with a stable white count and her diet was advanced. She is able to tolerate a diet without abdominal pain. After discussion with general surgery, it was felt that she could be discharged home from their perspective. They recommended mineral oil 2-3 times a week as well as a daily laxative and this was discussed with the patient. She already has mineral oil at home and she will be taking this 2-3 times a week. I asked her to take MiraLAX daily and titrate as needed to 2-3 bowel movements a day. I have also asked her to follow-up with her primary care provider in 1 week and that she will need a referral to general surgery for a colonoscopy in about 6 to 8 weeks. I prescribed her ciprofloxacin and Flagyl to take for 7 more days to complete treatment for the diverticulitis. I did ask her to return to the emergency department if she develops any fevers, worsening abdominal pain, nausea, vomiting. She is agreeable to this plan. - ALLERGIES Allergies/Adverse Reactions: Allergies Allergy/AdvReac Type Severity Reaction Status Date / Time No Known Drug Allergies Allergy Verified 04/05/20 23:16 - MEDICATIONS Home Medications: Ambulatory Orders Medication Instructions Recorded Confirmed Levothyroxine [Synthroid] 75 mcg PO QDAC 04/05/20 04/05/20 Ciprofloxacin [Cipro] 500 mg PO BID 7 Days #28 tab 04/10/20 Mineral Oil 15 ml PO DAILY #0 ml 04/10/20 metroNIDAZOLE [Flagyl] 500 mg PO TID 7 Days #42 tab 04/10/20 polyethylene glycoL 3350 [Miralax] 17 gm PO DAILY #14 packet 04/10/20 - PHYSICAL EXAM AT DISCHARGE General Appearance: positive: No acute distress, Alert Eyes Bilateral: positive: Normal inspection, Conjunctivae nml ENT: positive: ENT inspection nml Neck: positive: Nml inspection Respiratory: positive: No respiratory distress. negative: Wheezes, Rales Cardiovascular: positive: Regular rate & rhythm, No murmur. negative: Tachycardia, Systolic murmur Abdomen: positive: Nml bowel sounds, No distention, Tenderness (Minimal tenderne ss in left lower quadrant.). negative: Guarding, Rebound Skin: positive: Warm, Dry Extremities: positive: No pedal edema Neurologic/Psychiatric: positive: Oriented x3, Motor nml Physical Exam Other/Comments: Vital Signs - 24 hr 04/09/20 04/10/20 04/10/20 15:57 00:24 08:30 Temperature 36.3 C L 36.6 C 36.8 C Heart Rate [ 65 64 66 Brachial] Respiratory 20 16 14 Rate Blood Pressure 155/82 H 152/67 H 144/82 H [Left Brachial artery] O2 Saturation 100 100 100 Oxygen O2 Source Room air - LABS Result Diagrams: 04/10/20 08:18 04/10/20 08:18 - DIAGNOSTIC IMAGING Diagnostic Imaging Results: Final report reviewed - SEPSIS Current Stage of Sepsis: Resolved Possible source of Sepsis: GI tract/intra-abdominal Sepsis Criteria: Recorded Heart Rate greater than 90 bpm, WBC count greater than 12,000 or less than 4000 - FOLLOW UP Follow Up: She was asked to follow-up with her primary care provider in 1 week and she will need a general surgery referral for colonoscopy in 6 to 8 weeks. I did ask her to return to the emergency department if she develops worsening abdominal pain, fevers, chills. - TIME SPENT Time Spent in Discharge (Minutes): 35"
== END 2020-04-10 12:25 | disposition home or self-care (01) | DRG 872 ==
LOC: ED 22:57 → MS3 04-06 01:52
PROVIDERS: ADMIT Internal Medicine; ATTEND Internal Medicine
DX: A41.9 Sepsis, unspecified organism (principal); K57.20 Diverticulitis of large intestine with perforation and abscess without bleeding; R01.1 Cardiac murmur, unspecified; Z20.822 Contact with and (suspected) exposure to COVID-19; K56.7 Ileus, unspecified; K57.30 Diverticulosis of large intestine without perforation or abscess without bleeding; E03.9 Hypothyroidism, unspecified
CPT/HCPCS: 36415; 74177; 80048; 80053; 81003; 83605; 83690; 83735; 84443; 85025; 87631; 99284; 99285; A9270; J0131; J1170; Q9967; 0202U; 81001; 87086

== ENCOUNTER 2020-07-16 09:38 | Day surgery (SDC) | payer MEDICARE, BC, OTHER ==
[2020-07-16] MEDS ORDERED: LACTATED RINGERS 1,000 ML IV ONE ×2 (09:42→12:42)
[2020-07-16] MEDS ORDERED: fentaNYL 250 MCG/5 ML VIAL ONE (12:04)
[2020-07-16] MEDS ORDERED: MIDAZOLAM 2 MG/2 ML VIAL ONE ×2 (12:04→12:19)
[2020-07-16 14:18] VITALS: BP 110/75
== END 2020-07-16 09:39 | disposition home or self-care (01) ==
LOC: SDS 09:38
PROVIDERS: ATTEND Surgery
PROC: 0DBN8ZZ Excision of Sigmoid Colon, Via Natural or Artificial Opening Endoscopic (ICD-10-PCS; principal; 2020-07-16 10:45)
DX: Z12.11 Encounter for screening for malignant neoplasm of colon (principal); K63.5 Polyp of colon; K64.8 Other hemorrhoids; K57.30 Diverticulosis of large intestine without perforation or abscess without bleeding; Z87.19 Personal history of other diseases of the digestive system; K64.4 Residual hemorrhoidal skin tags
CPT/HCPCS: 45385; J3010; J7120

== ENCOUNTER 2020-10-29 08:00 | Outpatient (CLI) | payer MEDICARE, BC, OTHER ==
[2020-10-29 17:51] LABS: BASOPHILS # (AUTO) 0.1 10^3/uL (0.0-0.1); BASOPHILS % (AUTO) 1.5 %; EOSINOPHILS # (AUTO) 0.4 10^3/uL (0.0-0.7); EOSINOPHILS % (AUTO) 6.4 %; HCT - HEMATOCRIT 39.7 % (37.0-47.0); LYMPHOCYTES # (AUTO) 1.8 10^3/uL (1.5-3.5); MEAN CORPUSCULAR HEMOGLOBIN 32.4 pg (27.0-31.0); MEAN CORPUSCULAR HGB CONC 32.7 g/dL (32.0-36.0); MEAN PLATELET VOLUME 9.8 fL (7.9-10.8); MONOCYTES # (AUTO) 0.6 10^3/uL (0.0-1.0); MONOCYTES % (AUTO) 8.7 %; NEUTROPHILS # (AUTO) 3.7 10^3/uL (1.5-6.6); NEUTROPHILS % (AUTO) 56.1 %; PLT - PLATELET COUNT 339 10^3/uL (130-450); RED BLOOD COUNT 4.01 10^6/uL (4.20-5.40); RED CELL DISTRIBUTION WIDTH 12.5 % (12.0-15.0); WHITE BLOOD COUNT 6.6 x10^3/uL (4.8-10.8)
[2020-10-29 18:13] LABS: ALBUMIN 4.1 g/dL (3.2-5.5); ALBUMIN/GLOBULIN RATIO 1.5 (1.0-2.2); ALKALINE PHOSPHATASE 58 IU/L (42-121); ALT ALANINE AMINOTRANSFERASE 16 IU/L (10-60); AST ASPARTATE AMINOTRANSFERASE 22 IU/L (10-42); BILIRUBIN,TOTAL 0.4 mg/dL (0.2-1.0); BUN - BLOOD UREA NITROGEN 18 mg/dL (6-20); CALCIUM 8.9 mg/dL (8.5-10.3); CARBON DIOXIDE - CO2 26 mmol/L (21-32); CHLORIDE 105 mmol/L (101-111); CHOL/HDL RATIO 3.8 (<4.4); CHOLESTEROL 214 mg/dL; CREATININE 0.6 mg/dL (0.4-1.0); GFR - MDRD 99 (>89); GLUCOSE 90 mg/dL (70-100); HDL CHOLESTEROL 56 mg/dL; LDL CHOLESTEROL,CALCULATED 123 mg/dL; LDL/HDL RATIO 2.2 (<4.4); MAGNESIUM 2.4 mg/dL (1.7-2.8); POTASSIUM 3.9 mmol/L (3.5-5.0); SODIUM 140 mmol/L (135-145); TOTAL PROTEIN 6.9 g/dL (6.7-8.2); TRIGLYCERIDES 176 mg/dL; VLDL CHOLESTEROL 35 mg/dL
== END 2020-10-29 23:59 | disposition home or self-care (01) ==
LOC: LAB.WCP 08:00
PROVIDERS: ATTEND Family Medicine
DX: I49.3 Ventricular premature depolarization (principal); E03.9 Hypothyroidism, unspecified
CPT/HCPCS: 36415; 80053; 80061; 83721; 83735; 84443; 85025

== ENCOUNTER 2023-02-10 09:37 | Outpatient (CLI) | payer MEDICARE, BC, OTHER ==
[2023-02-10 09:49] LABS: BASOPHILS # (AUTO) 0.1 10^3/uL (0.0-0.1); BASOPHILS % (AUTO) 1.6 %; EOSINOPHILS # (AUTO) 0.4 10^3/uL (0.0-0.7); EOSINOPHILS % (AUTO) 8.3 %; HCT - HEMATOCRIT 44.8 % (37.0-47.0); HGB - HEMOGLOBIN 14.6 g/dL (12.0-16.0); LYMPHOCYTES % (AUTO) 45.5 %; MEAN CORPUSCULAR HEMOGLOBIN 31.1 pg (27.0-31.0); MEAN CORPUSCULAR HGB CONC 32.6 g/dL (32.0-36.0); MEAN CORPUSCULAR VOLUME 95.5 fL (81.0-99.0); MONOCYTES # (AUTO) 0.4 10^3/uL (0.0-1.0); MONOCYTES % (AUTO) 8.7 %; NEUTROPHILS # (AUTO) 1.6 10^3/uL (1.5-6.6); NEUTROPHILS % (AUTO) 35.9 %; PLT - PLATELET COUNT 380 10^3/uL (130-450); RED BLOOD COUNT 4.69 10^6/uL (4.20-5.40); RED CELL DISTRIBUTION WIDTH 13.2 % (12.0-15.0); WHITE BLOOD COUNT 4.5 x10^3/uL (4.8-10.8)
[2023-02-10 10:04] LABS: ALBUMIN 4.5 g/dL (3.2-5.5); ALBUMIN/GLOBULIN RATIO 1.6 (1.0-2.2); ALKALINE PHOSPHATASE 64 IU/L (42-121); ALT ALANINE AMINOTRANSFERASE 20 IU/L (10-60); AST ASPARTATE AMINOTRANSFERASE 23 IU/L (10-42); BILIRUBIN,TOTAL 0.5 mg/dL (0.2-1.0); BUN - BLOOD UREA NITROGEN 11 mg/dL (6-20); CALCIUM 9.7 mg/dL (8.5-10.3); CARBON DIOXIDE - CO2 29 mmol/L (21-32); CHLORIDE 103 mmol/L (101-111); CHOLESTEROL 225 mg/dL; CREATININE 0.6 mg/dL (0.6-1.3); GFR - MDRD 98 (>89); GLUCOSE 92 mg/dL (74-104); HDL CHOLESTEROL 56 mg/dL; LDL CHOLESTEROL,CALCULATED 140 mg/dL; LDL/HDL RATIO 2.5 (<4.4); SODIUM 137 mmol/L (135-145); TOTAL PROTEIN 7.4 g/dL (6.4-8.9); TRIGLYCERIDES 146 mg/dL (48-352); VLDL CHOLESTEROL 29 mg/dL
[2023-02-10 10:17] LABS: THYROID STIMULATING HORMONE 1.59 uIU/mL (0.34-5.60)
== END 2023-02-10 09:38 | disposition home or self-care (01) ==
LOC: LAB 09:37
PROVIDERS: ATTEND Nurse Practitioner Family
DX: Z00.00 Encounter for general adult medical examination without abnormal findings (principal); E78.5 Hyperlipidemia, unspecified; E03.9 Hypothyroidism, unspecified
CPT/HCPCS: 36415; 80053; 80061; 83721; 84443; 85025

== ENCOUNTER 2023-03-10 13:21 | Outpatient (CLI) | payer MEDICARE, BC, OTHER ==
--- NOTE | 2023-03-10 14:58 | DEXA Report ---
PROCEDURE: Dexa Spine and/or Hip INDICATIONS: POST MENOPAUSAL TECHNIQUE: Dual energy x-ray absorptiometry (DXA) was performed on a Opternative System. Regions measur ed are the AP Spine, femoral neck, and if needed forearm. COMPARISON: 10/05/2012 FINDINGS: Lumbar Spine: Bone Mineral Density 1.08 g/cm/cm,T score -0.8. Previously -1.2 Left Femoral Neck: Bone Mineral Density 0.80 g/cm/cm, T score -1.7. Previously -1.3 Left Hip: Bone Mineral Density 0.87 g/cm/cm,T score -1.1. Previously -0.2 (T score greater or equal to -1.0: NORMAL) (T score from -1.1 to -2.4: OSTEOPENIA) (T score less than or equal to -2.5 to: OSTEOPOROSIS) Impression: By WHO criteria, this patient has low bone density (osteopenia). Slight increase in the lumbar spine T score. Decreased in the left femoral neck and hip T-scores. Patients with diagnosis of osteoporosis or osteopenia should have regular bone mineral density assess ment. For those eligible for Medicare, routine testing is allowed once every 2 years. Testing frequ ency can be increased for patients who have rapidly progressing disease or for those who are receivin g medical therapy to restore bone mass. Reviewed by: Anthony Morales MD on 03/10/2023 2:56 PM PST Approved by: Anthony Morales MD on 03/10/2023 2:56 PM PST Station ID: [id number]
== END 2023-03-10 13:22 | disposition home or self-care (01) ==
LOC: DI 13:21
PROVIDERS: ATTEND Nurse Practitioner Family
DX: Z78.0 Asymptomatic menopausal state (principal); M85.89 Other specified disorders of bone density and structure, multiple sites

== ENCOUNTER 2023-03-16 13:58 | Outpatient (CLI) | payer MEDICARE, BC, OTHER ==
--- NOTE | 2023-03-22 09:23 | Mammography Report ---
BILATERAL DIGITAL SCREENING MAMMOGRAM 3D/2D: 03/16/2023 CLINICAL: Routine screening. Comparison is made to exams dated: 05/19/2021 mammogram, 05/15/2019 mammogram - [facility], 08/14/19 15 mammogram - [facility], and 08/31/2016 mammogram - [facility]. Both breasts are heterogeneously dense, which may obscure small masses (category c / 51-75% glandular tissue). There are benign calcifications in both breasts. No significant masses, calcifications, or other findings are seen in either breast. There has been no significant interval change. IMPRESSION: BENIGN There is no mammographic evidence of malignancy. A 1 year screening mammogram is recommended. Based on the Tyrer Cuzick model (a risk assessment model) the patient's lifetime risk is 5.8% and her 10 year risk is 4.8%. According to the ACR, ACS, and NCCN guidelines, an annual breast MRI exam steff g with mammogram is recommended if the patients lifetime risk is 20% or greater. This exam was interpreted at Station ID: [id number]. NOTE: For mammograms, a report in lay terms will be sent to the patient. Approximately 15% of breast malignancies will not be visualized mammographically. In the management of a palpable breast mass, a negative mammogram must not discourage biopsy of a clinically suspicious lesion. Electronically Signed By: Nathan pate/david:03/20/2023 08:50:59 letter sent: No_Letter ACR BI-RADS Category 2: Benign Finding(s) 3342F PARENCHYMAL PATTERN: (D) - The breast(s) demonstrate(s) heterogeneously dense fibroglandular lambert moreno. BI-RADS CATEGORY: (2) - 2 Mammogram [id number] 1 year screening LATERALITY: (B)
== END 2023-03-16 13:59 | disposition home or self-care (01) ==
LOC: DI 13:58
DX: Z12.31 Encounter for screening mammogram for malignant neoplasm of breast (principal); R92.333 Mammographic heterogeneous density, bilateral breasts; R92.1 Mammographic calcification found on diagnostic imaging of breast

== ENCOUNTER 2023-08-12 09:15 | Outpatient (CLI) | payer MEDICARE, BC, OTHER ==
[2023-08-12 09:37] LABS: CHOL/HDL RATIO 3.2 (<4.4); CHOLESTEROL 206 mg/dL; HDL CHOLESTEROL 64 mg/dL; LDL CHOLESTEROL,CALCULATED 125 mg/dL; TRIGLYCERIDES 86 mg/dL (48-352); VLDL CHOLESTEROL 17 mg/dL
== END 2023-08-12 09:16 | disposition home or self-care (01) ==
LOC: LAB 09:15
PROVIDERS: ATTEND Nurse Practitioner Family
DX: E78.5 Hyperlipidemia, unspecified (principal)
CPT/HCPCS: 36415; 80061; 83721